=== PATIENT | male | born 1965 | race African-American/Black ===

== ENCOUNTER 2020-08-19 17:02 | Inpatient (IN) | payer MEDICAID ==
[~2020-08-19] VITALS: Ht 188 cm; Wt 68.2 kg
[2020-08-19] MEDS ORDERED: TETanus/Pertussis (Acell)/Diphther VAC/PF (Tdap-Adult) 0.5ml syringe IMVAC ONE (18:40)
[2020-08-19] MEDS ORDERED: normal saline 1000ml 1,000 ML IV ONE (19:05)
[2020-08-19] MEDS ORDERED: METF500T PO (19:07)
[2020-08-19] MEDS ORDERED: LISI40TA4 PO (19:07)
[2020-08-19] MEDS ORDERED: GLYB5TAB7 PO (19:07)
[2020-08-19 19:28] LABS: BASOPHILS # (AUTO) 0.1 X10'3 (0-0.2); BASOPHILS % (AUTO) 0.5 % (0-1); EOSINOPHILS # (AUTO) 0.1 X10'3 (0-0.9); EOSINOPHILS % (AUTO) 0.4 % (0-6); HEMATOCRIT 29.2 % (42.0-52.0); HEMOGLOBIN 9.9 g/dl (14.0-17.9); LYMPHOCYTES # (AUTO) 1.5 X10'3 (1.1-4.8); LYMPHOCYTES % (AUTO) 10.4 % (21-51); MEAN CORPUSCULAR HEMOGLOBIN 32.5 PG (27.0-31.0); MEAN CORPUSCULAR HGB CONC 33.8 g/dL (33.0-36.5); MONOCYTES # (AUTO) 1.1 X10'3 (0-0.9); MONOCYTES % (AUTO) 7.6 % (2-12); NEUTROPHILS # (AUTO) 11.5 X10'3 (1.8-7.7); NEUTROPHILS % (AUTO) 81.1 % (42-75); PLATELET COUNT 363 X10'3 (140-440); RED BLOOD COUNT 3.04 X10'6 (4.70-6.10); RED CELL DISTRIBUTION WIDTH 13.4 % (11.5-14.5); WHITE BLOOD COUNT 14.1 X10'3 (4.5-11.0)
[2020-08-19 19:37] LABS: ALANINE AMINOTRANSFERASE 16 U/L (12-78); ALBUMIN 2.8 G/DL (3.4-5.0); ALBUMIN/GLOBULIN RATIO 0.5 (1.1-1.5); ALKALINE PHOSPHATASE 90 IU/L (46-116); ANION GAP 6 (8-16); ASPARTATE AMINO TRANSFERASE 11 U/L (10-37); BILIRUBIN,TOTAL 0.5 MG/DL (0.1-1.0); BLOOD UREA NITROGEN 25 MG/DL (7-18); BUN/CREATININE RATIO 26.6 (5.4-32.0); C-REACTIVE PROTEIN 12.88 MG/DL (0.0-0.5); CALCIUM 9.4 MG/DL (8.5-10.1); CHLORIDE 94 MMOL/L (99-107); CREATININE 0.94 MG/DL (0.60-1.10); GLUCOSE 399 MG/DL (70-104); POTASSIUM 4.2 MMOL/L (3.5-5.1); SODIUM 130 MMOL/L (135-145); TOTAL CARBON DIOXIDE 30.1 MMOL/L (24-32); eGFR 83 ML/MIN
[2020-08-19] MEDS ORDERED: insulin regular, human 10 units/0.1 ml syringe SQ ONE (19:50)
[2020-08-19] MEDS ORDERED: cefepime 2g/NS 100ml ADVANTAGE 100 ML IV SCH (20:25)
[2020-08-19] MEDS ORDERED: vancomycin/NS 1 GM ADD-VANTAGE 250 ML IV ONE (20:25)
[2020-08-19] MEDS ORDERED: cefepime 2g/NS 100ml ADVANTAGE 100 ML IV ONE (20:29)
[2020-08-19] MEDS ORDERED: potassium Cl 20 mEq SR tablet PO PRN (21:00)
[2020-08-19] MEDS ORDERED: ondansetron/PF 4mg/2ml inj IV PRN (21:00)
[2020-08-19] MEDS ORDERED: morphine 2 MG/ML inj. syringe IV PRN ×3 (21:00→23:20)
[2020-08-19] MEDS ORDERED: magnesium hydroxide 30ml (MOM) UD suspension PO PRN (21:00)
[2020-08-19] MEDS ORDERED: potassium CL 10mEq/100ml bag 100 ML IV PRN ×2 (21:00)
[2020-08-19] MEDS ORDERED: acetaminophen 325mg tablet PO PRN (21:00)
[2020-08-19] MEDS ORDERED: mag hydrox/Alum hydrox/simeth 30ml oral suspension PO PRN (21:00)
[2020-08-19] MEDS ORDERED: dextrose ORAL solution 15 GM/59 ML bottle PO PRN ×2 (21:05)
[2020-08-19] MEDS ORDERED: glucagon, human recombinant 1mg kit SUBCUT PRN (21:05)
[2020-08-19] MEDS ORDERED: dextrose 50%-water 50ml dispensing syringe IV PRN ×2 (21:05)
[2020-08-19] MEDS ORDERED: MESSAGE TO PHARMACY PO ONE (21:05)
[2020-08-19] MEDS: normal saline 1000ml 1,000 ML IV SCH (21:13)
[2020-08-19 22:00] VITALS: BP 117/69
--- NOTE | 2020-08-19 22:00 | NUR ---
Received Patient report from ER nurse. Patient arrived to unit at 2150, alert oriented x4 , and in no apparent distress. Patient arrived with backpack and carolyn pack.
[2020-08-19] MEDS: insulin Lispro (HumaLOG) vial - multi-dose SQ SCH (22:58)
[2020-08-19] MEDS: insulin glargine (Lantus) pen - multi-dose SQ SCH (23:12)
[2020-08-20] MEDS: cefepime 1GM/NS ADD-VANTAGE 100 ML IV SCH ×3 (00:18→15:38)
[2020-08-20] MEDS: morphine 2 MG/ML inj. syringe IV PRN ×4 (00:18→21:07)
[2020-08-20 01:50] VITALS: BP 132/88
[2020-08-20 05:07] LABS: BASOPHILS # (AUTO) 0.1 X10'3 (0-0.2); BASOPHILS % (AUTO) 0.4 % (0-1); EOSINOPHILS # (AUTO) 0.1 X10'3 (0-0.9); HEMATOCRIT 27.3 % (42.0-52.0); HEMOGLOBIN 9.2 g/dl (14.0-17.9); LYMPHOCYTES # (AUTO) 1.3 X10'3 (1.1-4.8); LYMPHOCYTES % (AUTO) 9.3 % (21-51); MEAN CORPUSCULAR HEMOGLOBIN 32.1 PG (27.0-31.0); MEAN CORPUSCULAR HGB CONC 33.8 g/dL (33.0-36.5); MEAN CORPUSCULAR VOLUME 94.9 FL (78-98); MEAN PLATELET VOLUME 6.8 FL (7.4-10.4); MONOCYTES # (AUTO) 1.1 X10'3 (0-0.9); MONOCYTES % (AUTO) 8.4 % (2-12); NEUTROPHILS % (AUTO) 80.9 % (42-75); PLATELET COUNT 335 X10'3 (140-440); RED BLOOD COUNT 2.88 X10'6 (4.70-6.10); RED CELL DISTRIBUTION WIDTH 13.7 % (11.5-14.5); WHITE BLOOD COUNT 13.6 X10'3 (4.5-11.0)
[2020-08-20 05:13] LABS: ALANINE AMINOTRANSFERASE 15 U/L (12-78); ALBUMIN 2.5 G/DL (3.4-5.0); ALBUMIN/GLOBULIN RATIO 0.5 (1.1-1.5); ALKALINE PHOSPHATASE 82 IU/L (46-116); ANION GAP 5 (8-16); ASPARTATE AMINO TRANSFERASE 4 U/L (10-37); BILIRUBIN,TOTAL 0.5 MG/DL (0.1-1.0); BLOOD UREA NITROGEN 18 MG/DL (7-18); BUN/CREATININE RATIO 19.8 (5.4-32.0); CALCIUM 8.5 MG/DL (8.5-10.1); CHLORIDE 99 MMOL/L (99-107); CREATININE 0.91 MG/DL (0.60-1.10); GLUCOSE 359 MG/DL (70-104); POTASSIUM 3.5 MMOL/L (3.5-5.1); SODIUM 134 MMOL/L (135-145); TOTAL CARBON DIOXIDE 30.5 MMOL/L (24-32); TOTAL PROTEIN 7.3 G/DL (6.4-8.2); eGFR > 90 ML/MIN
[2020-08-20 06:30] VITALS: BP 140/92
--- NOTE | 2020-08-20 06:30 | NUR ---
Patient in room ALLA 340. I have received report from CINTIA Garnica and had the opportunity to ask questions and assume patient care.
--- NOTE | 2020-08-20 06:37 | NUR ---
Problems reprioritized. Patient report given, questions answered & plan of care reviewed with CINTIA Shafer.
[2020-08-20] MEDS: K and/or MAG REPLACEMENT MC SCH ×2 (07:03→20:00)
[2020-08-20] MEDS ORDERED: non-formulary drug (Glyburide 1 TAB) PO SCH (08:00)
[2020-08-20] MEDS ORDERED: cefepime 2g/NS 100ml ADVANTAGE 100 ML IV SCH (08:00)
[2020-08-20] MEDS ORDERED: non-formulary drug (Lisinopril* 1 TAB) PO SCH (08:00)
[2020-08-20] MEDS ORDERED: metFORMIN 500mg tablet PO SCH (08:00)
[2020-08-20] MEDS: lisinopril 10 MG tablet PO SCH (08:51)
[2020-08-20] MEDS: normal saline 1000ml 1,000 ML IV SCH ×2 (08:52→17:00)
[2020-08-20] MEDS: heparin, porcine 5000 units/ml vial SQ SCH ×2 (08:52→20:37)
[2020-08-20] MEDS: insulin Lispro (HumaLOG) vial - multi-dose SQ SCH ×4 (09:10→21:22)
[2020-08-20] MEDS ORDERED: pneumococcal 23-VAL P-sac vacc 25 mcg/0.5ml vial IMVAC ONE (10:00)
[2020-08-20] MEDS: vancomycin/NS 1 GM ADD-VANTAGE 250 ML IV SCH ×2 (10:10→20:38)
[2020-08-20 11:00] VITALS: BP 121/78
--- NOTE | 2020-08-20 15:13 | NUR ---
DM/wound consult: Pt admit with left foot DM ulcer. Wound care has been consulted for further assessment, pending at this time. Pt with A1c 10.7% seen at bedside for written and verbal protein and DM educations. Pt verbalized understanding of both educations. Pt states he hasn't seen an MD since they retired however would not clarify as to when he last saw them. Pt states he checks his BG levels one time a week however is unsure of what numbers he generally sees. Pt reports taking his DM medications per rx and states that he tries to limit his sugar intake. RD encouraged pt to f/u with an MD regarding diabetes management. Pt endorses a good appetite which is evident with documented 100% PO intake on CHO controlled diet, agrees to double protein TID, d/w dietary. Pt denies food allergies, difficulty chewing/swallowing, or constipation/diarrhea. Pt provided with BETTIE contact information. Will continue to follow. Addendum: 08/20/20 at [address] Amended: Links added.
--- NOTE | 2020-08-20 16:55 | NUR ---
Report given to O/N, Giulia RN
--- NOTE | 2020-08-20 17:01 | NUR ---
Patient in room ALLA 340. I have received report from Soni CHAMBERLAIN and had the opportunity to ask questions and assume patient care.
--- NOTE | 2020-08-20 17:50 | NUR ---
Patient arrived to the unit.
--- NOTE | 2020-08-20 18:14 | NUR ---
Problems reprioritized. Patient report given, questions answered & plan of care reviewed with Arlen CHAMBERLAIN.
--- NOTE | 2020-08-20 18:15 | NUR ---
Problems reprioritized. Patient report given, questions answered & plan of care reviewed with Arlen CHAMBERLAIN.
--- NOTE | 2020-08-20 18:30 | NUR ---
Patient in room ORTHO 4007. I have received report from Giulia RN AND CINTIA Holbrook student and had the opportunity to ask questions and assume patient care.
[2020-08-20] MEDS: lactobacillus rhamnosus 10,000 MMU CELLS/CAPSULE PO SCH (20:36)
[2020-08-20] MEDS: insulin glargine (Lantus) pen - multi-dose SQ SCH (21:20)
[2020-08-20 22:19] VITALS: BP 129/76
[2020-08-21] MEDS: cefepime 1GM/NS ADD-VANTAGE 100 ML IV SCH ×4 (00:34→23:55)
[2020-08-21] MEDS: normal saline 1000ml 1,000 ML IV SCH ×2 (00:37→15:10)
[2020-08-21] MEDS: morphine 2 MG/ML inj. syringe IV PRN ×2 (00:46→11:26)
[2020-08-21 05:52] LABS: BASOPHILS # (AUTO) 0.1 X10'3 (0-0.2); BASOPHILS % (AUTO) 0.4 % (0-1); EOSINOPHILS # (AUTO) 0.1 X10'3 (0-0.9); EOSINOPHILS % (AUTO) 0.6 % (0-6); HEMATOCRIT 29.4 % (42.0-52.0); HEMOGLOBIN 9.8 g/dl (14.0-17.9); LYMPHOCYTES # (AUTO) 1.5 X10'3 (1.1-4.8); LYMPHOCYTES % (AUTO) 11.8 % (21-51); MEAN CORPUSCULAR HEMOGLOBIN 31.9 PG (27.0-31.0); MEAN CORPUSCULAR HGB CONC 33.5 g/dL (33.0-36.5); MEAN CORPUSCULAR VOLUME 95.4 FL (78-98); MEAN PLATELET VOLUME 6.8 FL (7.4-10.4); MONOCYTES % (AUTO) 8.1 % (2-12); NEUTROPHILS # (AUTO) 9.8 X10'3 (1.8-7.7); NEUTROPHILS % (AUTO) 79.1 % (42-75); PLATELET COUNT 389 X10'3 (140-440); RED BLOOD COUNT 3.08 X10'6 (4.70-6.10); RED CELL DISTRIBUTION WIDTH 13.7 % (11.5-14.5); WHITE BLOOD COUNT 12.4 X10'3 (4.5-11.0)
[2020-08-21 06:00] VITALS: BP 122/70
[2020-08-21 06:22] LABS: ALANINE AMINOTRANSFERASE 12 U/L (12-78); ALBUMIN 2.4 G/DL (3.4-5.0); ALBUMIN/GLOBULIN RATIO 0.5 (1.1-1.5); ALKALINE PHOSPHATASE 74 IU/L (46-116); ANION GAP 5 (8-16); ASPARTATE AMINO TRANSFERASE 10 U/L (10-37); BILIRUBIN,TOTAL 0.8 MG/DL (0.1-1.0); BLOOD UREA NITROGEN 8 MG/DL (7-18); CALCIUM 8.8 MG/DL (8.5-10.1); CHLORIDE 100 MMOL/L (99-107); CREATININE 0.73 MG/DL (0.60-1.10); GLUCOSE 75 MG/DL (70-104); SODIUM 135 MMOL/L (135-145); TOTAL CARBON DIOXIDE 30.4 MMOL/L (24-32); TOTAL PROTEIN 7.2 G/DL (6.4-8.2); eGFR > 90 ML/MIN
--- NOTE | 2020-08-21 06:35 | NUR ---
Problems reprioritized. Patient report given, questions answered & plan of care reviewed with CINTIA Monroe.
[2020-08-21 06:40] LABS: POTASSIUM 2.9 MMOL/L (3.5-5.1)
[2020-08-21] MEDS: K and/or MAG REPLACEMENT MC SCH ×2 (08:00→20:00)
[2020-08-21] MEDS: lisinopril 10 MG tablet PO SCH (08:12)
[2020-08-21] MEDS: lactobacillus rhamnosus 10,000 MMU CELLS/CAPSULE PO SCH ×2 (08:12→20:00)
[2020-08-21] MEDS: heparin, porcine 5000 units/ml vial SQ SCH ×2 (08:19→20:00)
[2020-08-21] MEDS: potassium Cl 20 mEq SR tablet PO PRN ×3 (08:23→16:52)
[2020-08-21] MEDS ORDERED: VANCOMYCIN LEVEL IV ONE (08:30)
[2020-08-21] MEDS: vancomycin/NS 1 GM ADD-VANTAGE 250 ML IV SCH (09:31)
[2020-08-21] MEDS: insulin Lispro (HumaLOG) vial - multi-dose SQ SCH ×2 (09:34→13:42)
[2020-08-21 10:00] VITALS: BP 132/78
[2020-08-21] MEDS ORDERED: lactobacillus rhamnosus 10,000 MMU CELLS/CAPSULE CORPAK SCH (11:53)
[2020-08-21] MEDS ORDERED: acetaminophen 325mg tablet CORPAK PRN (11:53)
[2020-08-21] MEDS ORDERED: lisinopril 10 MG tablet CORPAK SCH (11:53)
[2020-08-21] MEDS ORDERED: dextrose ORAL solution 15 GM/59 ML bottle CORPAK PRN ×2 (11:53)
[2020-08-21] MEDS ORDERED: acetaminophen 325mg tablet PO PRN (11:54)
[2020-08-21] MEDS: HYDROmorphone 1 mg/ml syringe IV PRN ×2 (15:14→21:12)
[2020-08-21] MEDS: dextrose ORAL solution 15 GM/59 ML bottle PO PRN ×2 (16:55→17:18)
[2020-08-21 18:00] VITALS: BP 149/86
--- NOTE | 2020-08-21 18:33 | NUR ---
Problems reprioritized. Patient report given, questions answered & plan of care reviewed with CINTIA Lai.
--- NOTE | 2020-08-21 18:37 | NUR ---
Patient in room ORTHO 4007. I have received report from Mabel CHAMBERLAIN and had the opportunity to ask questions and assume patient care.
[2020-08-21] MEDS: insulin glargine (Lantus) pen - multi-dose SQ SCH (21:27)
[2020-08-21 22:00] VITALS: BP 118/70
[2020-08-22] VITALS (17 sets, daily range): BP systolic 84–158; BP diastolic 56–101
[2020-08-22] MEDS: normal saline 1000ml 1,000 ML IV SCH ×2 (01:22→05:27)
[2020-08-22] MEDS: HYDROmorphone 1 mg/ml syringe IV PRN (03:40)
[2020-08-22 05:31] LABS: BASOPHILS % (AUTO) 0.3 % (0-1); EOSINOPHILS # (AUTO) 0.1 X10'3 (0-0.9); EOSINOPHILS % (AUTO) 0.8 % (0-6); HEMATOCRIT 24.4 % (42.0-52.0); HEMOGLOBIN 8.1 g/dl (14.0-17.9); LYMPHOCYTES # (AUTO) 1.5 X10'3 (1.1-4.8); LYMPHOCYTES % (AUTO) 11.9 % (21-51); MEAN CORPUSCULAR HEMOGLOBIN 31.6 PG (27.0-31.0); MEAN CORPUSCULAR HGB CONC 33.4 g/dL (33.0-36.5); MEAN CORPUSCULAR VOLUME 94.6 FL (78-98); MEAN PLATELET VOLUME 6.8 FL (7.4-10.4); MONOCYTES # (AUTO) 1.2 X10'3 (0-0.9); MONOCYTES % (AUTO) 9.1 % (2-12); NEUTROPHILS % (AUTO) 77.9 % (42-75); PLATELET COUNT 378 X10'3 (140-440); RED BLOOD COUNT 2.58 X10'6 (4.70-6.10); RED CELL DISTRIBUTION WIDTH 13.8 % (11.5-14.5); WHITE BLOOD COUNT 12.8 X10'3 (4.5-11.0)
[2020-08-22 05:43] LABS: ALANINE AMINOTRANSFERASE 12 U/L (12-78); ALBUMIN/GLOBULIN RATIO 0.5 (1.1-1.5); ALKALINE PHOSPHATASE 67 IU/L (46-116); ANION GAP 4 (8-16); ASPARTATE AMINO TRANSFERASE 10 U/L (10-37); BLOOD UREA NITROGEN 8 MG/DL (7-18); BUN/CREATININE RATIO 12.1 (5.4-32.0); CALCIUM 8.1 MG/DL (8.5-10.1); CHLORIDE 98 MMOL/L (99-107); CREATININE 0.66 MG/DL (0.60-1.10); GLUCOSE 151 MG/DL (70-104); POTASSIUM 3.7 MMOL/L (3.5-5.1); SODIUM 132 MMOL/L (135-145); TOTAL CARBON DIOXIDE 30.4 MMOL/L (24-32); TOTAL PROTEIN 6.3 G/DL (6.4-8.2); eGFR > 90 ML/MIN
--- NOTE | 2020-08-22 06:14 | NUR ---
Problems reprioritized. Patient report given, questions answered & plan of care reviewed with Martha CHAMBERLAIN. Patient stable at transfer of care. All current needs met
--- NOTE | 2020-08-22 06:34 | NUR ---
Received report from Joelle CHAMBERLAIN
[2020-08-22] MEDS: heparin, porcine 5000 units/ml vial SQ SCH ×2 (07:48→20:55)
[2020-08-22] MEDS: cefepime 1GM/NS ADD-VANTAGE 100 ML IV SCH ×3 (07:49→23:59)
[2020-08-22] MEDS: K and/or MAG REPLACEMENT MC SCH ×2 (08:00→19:10)
[2020-08-22] MEDS: lisinopril 10 MG tablet PO SCH (08:00)
[2020-08-22] MEDS: lactobacillus rhamnosus 10,000 MMU CELLS/CAPSULE PO SCH ×2 (08:54→20:54)
[2020-08-22] MEDS ORDERED: ringers solution, lacted 1,000 ML IV SCH (10:47)
[2020-08-22] MEDS ORDERED: morphine 2 MG/ML inj. syringe IV PRN (10:50)
[2020-08-22] MEDS ORDERED: ondansetron/PF 4mg/2ml inj IV PRN (10:50)
[2020-08-22] MEDS ORDERED: morphine 4 MG/ML inj SYRINge IV PRN (10:50)
[2020-08-22] MEDS ORDERED: meperidine/PF 25mg/ml syringe IV PRN ×3 (10:50)
[2020-08-22] MEDS ORDERED: proCHLORperazine 10 MG/2 ml inj IV PRN (10:50)
[2020-08-22] MEDS ORDERED: fentaNYL/PF 50MCG/1 ML 2ML syringe ONE (11:26)
[2020-08-22] MEDS ORDERED: propofol inj 20 ML IV ONE (11:26)
[2020-08-22] MEDS ORDERED: midazolam 2 mg/2 ml injection ONE (11:26)
[2020-08-22] MEDS ORDERED: sevoflurane 250ml liquid IH ONE (11:41)
--- NOTE | 2020-08-22 13:35 | NUR ---
PATIENT A&OX4, DENIES PAIN, V/S WNL, NEUROVASCULAR CHECKS INTACT, 22G PIV LUE, SCD ON, DRESSING TO LEFT ANKLE CDI ELEVATED WITH ICEBAG APPLIED. PATIENT TAKEN TO 4007 WITH ALL BELONGINGS AND HOOKED UP TO MONITORS IN ROOM AND REPORT GIVEN TO PENCIL SORTER WHO HAS TAKEN OVER PATIENT CARE.
--- NOTE | 2020-08-22 13:35 | NUR ---
Received from OR via BED, accompanied by Anesthesiologist DR ESTRADA and report given by Anesthesiolgist. PATIENT A&OX4, DENIES PAIN, V/S WNL, NEUROVASCULAR CHECKS INTACT, 22G PIV LUE, SCD ON, DRESSING TO LEFT ANKLE CDI ELEVATED WITH ICEBAG APPLIED.
[2020-08-22] MEDS: HYDROmorphone inj. 0.5 MG/0.5 ML DISP.SYRIN IV PRN (16:56)
[2020-08-22] MEDS: insulin Lispro (HumaLOG) vial - multi-dose SQ SCH (18:55)
[2020-08-22] MEDS: insulin glargine (Lantus) pen - multi-dose SQ SCH (21:01)
[2020-08-23] MEDS: HYDROmorphone 1 mg/ml syringe IV PRN ×2 (00:01→08:26)
[2020-08-23 02:00] VITALS: BP 114/72
[2020-08-23 06:00] VITALS: BP 115/67
--- NOTE | 2020-08-23 07:43 | NUR ---
Patient in room ORTHO 4007. I have received report from CINTIA CARMONA and had the opportunity to ask questions and assume patient care.
[2020-08-23] MEDS ORDERED: cefepime inj. 1 GM in normal saline 100ml IV soln 100 ML IV SCH (08:00)
[2020-08-23] MEDS: K and/or MAG REPLACEMENT MC SCH ×2 (08:00→21:51)
[2020-08-23] MEDS: lactobacillus rhamnosus 10,000 MMU CELLS/CAPSULE PO SCH ×2 (08:00→21:38)
[2020-08-23] MEDS: lisinopril 10 MG tablet PO SCH (08:00)
[2020-08-23] MEDS: heparin, porcine 5000 units/ml vial SQ SCH ×2 (08:17→21:39)
[2020-08-23] MEDS: normal saline 1000ml 1,000 ML IV SCH ×3 (08:24→23:08)
[2020-08-23] MEDS ORDERED: VANCOMYCIN LEVEL IV ONE (08:30)
[2020-08-23] MEDS: insulin Lispro (HumaLOG) vial - multi-dose SQ SCH ×2 (09:18→19:01)
[2020-08-23 09:47] LABS: BASOPHILS % (AUTO) 0.4 % (0-1); EOSINOPHILS # (AUTO) 0.1 X10'3 (0-0.9); EOSINOPHILS % (AUTO) 0.5 % (0-6); HEMATOCRIT 22.7 % (42.0-52.0); HEMOGLOBIN 7.5 g/dl (14.0-17.9); LYMPHOCYTES % (AUTO) 8.6 % (21-51); MEAN CORPUSCULAR HEMOGLOBIN 31.5 PG (27.0-31.0); MEAN CORPUSCULAR HGB CONC 33.1 g/dL (33.0-36.5); MEAN CORPUSCULAR VOLUME 95.2 FL (78-98); MEAN PLATELET VOLUME 6.5 FL (7.4-10.4); MONOCYTES # (AUTO) 0.9 X10'3 (0-0.9); MONOCYTES % (AUTO) 7.9 % (2-12); NEUTROPHILS # (AUTO) 9.5 X10'3 (1.8-7.7); NEUTROPHILS % (AUTO) 82.6 % (42-75); PLATELET COUNT 416 X10'3 (140-440); RED BLOOD COUNT 2.39 X10'6 (4.70-6.10); RED CELL DISTRIBUTION WIDTH 14.6 % (11.5-14.5); WHITE BLOOD COUNT 11.5 X10'3 (4.5-11.0)
[2020-08-23 09:59] LABS: ALANINE AMINOTRANSFERASE 10 U/L (12-78); ALBUMIN 1.9 G/DL (3.4-5.0); ALBUMIN/GLOBULIN RATIO 0.4 (1.1-1.5); ALKALINE PHOSPHATASE 72 IU/L (46-116); ANION GAP 1 (8-16); ASPARTATE AMINO TRANSFERASE 15 U/L (10-37); BLOOD UREA NITROGEN 7 MG/DL (7-18); BUN/CREATININE RATIO 9.3 (5.4-32.0); CALCIUM 8.4 MG/DL (8.5-10.1); CHLORIDE 101 MMOL/L (99-107); CREATININE 0.75 MG/DL (0.60-1.10); GLUCOSE 197 MG/DL (70-104); POTASSIUM 3.5 MMOL/L (3.5-5.1); SODIUM 134 MMOL/L (135-145); TOTAL CARBON DIOXIDE 31.9 MMOL/L (24-32); TOTAL PROTEIN 6.4 G/DL (6.4-8.2); eGFR > 90 ML/MIN
[2020-08-23 10:00] VITALS: BP 100/60
--- NOTE | 2020-08-23 12:54 | NUR ---
Initial: Pt admit DX L foot cellulitis, L plantar foot DM ulcer, anemia, and hx uncontrolled DM checking Glu once per week reported during RD visit this admit. S/p I&D L foot PO 90-100% avg carb controlled meals likely meeting protein/kcal needs though still pending scaled wt this admit. LBM 08/20. No nutrition concerns at this time. Will continue to monitor. Rec: 1. continue carb controlled diet 2. routine bowel care 3. monitor for additional protein needs pending scaled wt this admit Addendum: 08/23/20 at [address] Amended: Links added.
[2020-08-23] MEDS ORDERED: vancomycin/NS 1 GM ADD-VANTAGE 250 ML IV SCH (16:00)
[2020-08-23] MEDS ORDERED: VANCOmycin 1250MG/NS 250ml Bag 250 ML IV SCH (16:00)
[2020-08-23 18:00] VITALS: BP 125/73
--- NOTE | 2020-08-23 18:06 | NUR ---
Problems reprioritized. Patient report given, questions answered & plan of care reviewed with CINTIA CARMONA.
[2020-08-23] MEDS: HYDROcodone/acetaminophen 10/325mg tab PO PRN (21:38)
[2020-08-23] MEDS: insulin glargine (Lantus) pen - multi-dose SQ SCH (21:46)
[2020-08-23 22:00] VITALS: BP 97/59
[2020-08-24] VITALS (8 sets, daily range): BP systolic 90–133; BP diastolic 58–91
--- NOTE | 2020-08-24 04:24 | NUR ---
Informed by fellow RN that patient's dressing for left foot had been taken off by the patient and placed on his bedside table. When patient was asked why he had taken off his dressing he stated "it was oozing." Educated patient that if he had concerns about his dressing or found it to be oozing to press his call button and have nursing staff assist him, for when he takes the dressing off he is at greater risk for another infection to the wound. New dressing applied to the left foot, Xeroform with gauze covered by Kerlix and kellee bandage. Patient has verbalized understanding at this time of education provided regarding his dressing. Will continue to monitor, call light within reach of patient.
--- NOTE | 2020-08-24 06:29 | NUR ---
Report given to Clarisa CHAMBERLAIN.
[2020-08-24 06:43] LABS: BASOPHILS # (AUTO) 0.1 X10'3 (0-0.2); BASOPHILS % (AUTO) 0.9 % (0-1); EOSINOPHILS # (AUTO) 0.2 X10'3 (0-0.9); EOSINOPHILS % (AUTO) 1.8 % (0-6); HEMOGLOBIN 7.1 g/dl (14.0-17.9); LYMPHOCYTES # (AUTO) 1.6 X10'3 (1.1-4.8); LYMPHOCYTES % (AUTO) 17.9 % (21-51); MEAN CORPUSCULAR HGB CONC 33.7 g/dL (33.0-36.5); MEAN CORPUSCULAR VOLUME 94.7 FL (78-98); MEAN PLATELET VOLUME 6.7 FL (7.4-10.4); MONOCYTES # (AUTO) 0.8 X10'3 (0-0.9); MONOCYTES % (AUTO) 9.2 % (2-12); NEUTROPHILS # (AUTO) 6.2 X10'3 (1.8-7.7); NEUTROPHILS % (AUTO) 70.2 % (42-75); PLATELET COUNT 439 X10'3 (140-440); RED BLOOD COUNT 2.21 X10'6 (4.70-6.10); RED CELL DISTRIBUTION WIDTH 14.8 % (11.5-14.5); WHITE BLOOD COUNT 8.8 X10'3 (4.5-11.0)
[2020-08-24 06:47] LABS: HEMATOCRIT 20.9 % (42.0-52.0)
[2020-08-24 06:59] LABS: ALANINE AMINOTRANSFERASE 15 U/L (12-78); ALBUMIN 1.9 G/DL (3.4-5.0); ALBUMIN/GLOBULIN RATIO 0.4 (1.1-1.5); ALKALINE PHOSPHATASE 71 IU/L (46-116); ANION GAP 4 (8-16); ASPARTATE AMINO TRANSFERASE 12 U/L (10-37); BILIRUBIN,TOTAL 0.5 MG/DL (0.1-1.0); BLOOD UREA NITROGEN 8 MG/DL (7-18); BUN/CREATININE RATIO 12.7 (5.4-32.0); CALCIUM 8.1 MG/DL (8.5-10.1); CHLORIDE 104 MMOL/L (99-107); CREATININE 0.63 MG/DL (0.60-1.10); GLUCOSE 141 MG/DL (70-104); POTASSIUM 3.5 MMOL/L (3.5-5.1); SODIUM 138 MMOL/L (135-145); TOTAL CARBON DIOXIDE 29.7 MMOL/L (24-32); TOTAL PROTEIN 6.4 G/DL (6.4-8.2); eGFR > 90 ML/MIN
[2020-08-24] MEDS: K and/or MAG REPLACEMENT MC SCH ×2 (08:00→20:00)
[2020-08-24] MEDS: HYDROcodone/acetaminophen 10/325mg tab PO PRN ×2 (08:31→15:06)
[2020-08-24] MEDS: lactobacillus rhamnosus 10,000 MMU CELLS/CAPSULE PO SCH ×2 (08:31→20:38)
[2020-08-24] MEDS: lisinopril 10 MG tablet PO SCH (08:34)
[2020-08-24] MEDS: insulin Lispro (HumaLOG) vial - multi-dose SQ SCH ×3 (08:39→19:15)
[2020-08-24] MEDS: heparin, porcine 5000 units/ml vial SQ SCH ×2 (08:40→20:38)
[2020-08-24] MEDS: levoFLOXACIN-Levaquin 500mg/D5 100 ML IV SCH (08:45)
--- NOTE | 2020-08-24 11:41 | NUR ---
Student documentation: I have reviewed all interventions, assessments performed and documented by Dann Marion. Student Medication Administration: For this medication-pass time frame, all medication were reviewed, dispensed, administered and documented per hospital policy by Dann Marion.
--- NOTE | 2020-08-24 14:57 | NUR ---
DIABETIC FOOT CARE EDUCATION PROVIDED BY WOUND CARE * Wash your feet daily with lukewarm water and soap. * Dry your feet well, especially between the toes. * Keep the skin moisturized with lotion, but do not apply it between the toes. * Check your feet for blisters, cuts or sores. * Use an emery board to shape your toenails even with the ends of your toes. * Change daily into clean, soft socks or stockings, not too big or too small. * Keep your feet warm and dry. * Preferably wear special padded socks and shoes that fit well. * Never walk barefoot indoors or outdoors. * Examine your shoes everyday for cracks, ryan, nails or anything that could hurt your feet. * Tell your doctor if you find any of these problems or have any concerns after examining your feet. WOUND INFECTION EDUCATION PROVIDED BY WOUND CARE 1. Patient instructed to call their primary doctor, or go the ED immediately if any of the following symptoms occur: * Increased pain in wound * Increase in drainage from the wound * Redness in the skin surrounding the wound * Warmth in the skin surrounding the wound * Bleeding from the wound * Temperature of 101 or greater 2. If any of these occur while in the hospital tell a nurse immediately. Addendum: 08/24/20 at 1457 by Merlin Bermudez RN Amended: Links added.
[2020-08-24] MEDS: normal saline 1000ml 1,000 ML IV SCH (15:04)
[2020-08-24] MEDS ORDERED: VANCOMYCIN LEVEL IV ONE (15:30)
--- NOTE | 2020-08-24 18:38 | NUR ---
Problems reprioritized. Patient report given, questions answered & plan of care reviewed with Sully CHAMBERLAIN.
[2020-08-24 18:42] LABS: BASOPHILS # (AUTO) 0.1 X10'3 (0-0.2); EOSINOPHILS # (AUTO) 0.1 X10'3 (0-0.9); EOSINOPHILS % (AUTO) 1.6 % (0-6); HEMATOCRIT 23.1 % (42.0-52.0); HEMOGLOBIN 7.8 g/dl (14.0-17.9); LYMPHOCYTES # (AUTO) 1.7 X10'3 (1.1-4.8); LYMPHOCYTES % (AUTO) 22.9 % (21-51); MEAN CORPUSCULAR HEMOGLOBIN 32.1 PG (27.0-31.0); MEAN CORPUSCULAR HGB CONC 33.7 g/dL (33.0-36.5); MEAN CORPUSCULAR VOLUME 95.3 FL (78-98); MEAN PLATELET VOLUME 6.8 FL (7.4-10.4); MONOCYTES # (AUTO) 0.9 X10'3 (0-0.9); MONOCYTES % (AUTO) 12.1 % (2-12); NEUTROPHILS # (AUTO) 4.6 X10'3 (1.8-7.7); NEUTROPHILS % (AUTO) 62.4 % (42-75); PLATELET COUNT 457 X10'3 (140-440); RED BLOOD COUNT 2.42 X10'6 (4.70-6.10); RED CELL DISTRIBUTION WIDTH 14.8 % (11.5-14.5); WHITE BLOOD COUNT 7.4 X10'3 (4.5-11.0)
[2020-08-24] MEDS: insulin glargine (Lantus) pen - multi-dose SQ SCH (21:49)
[2020-08-25] MEDS: normal saline 1000ml 1,000 ML IV SCH ×2 (02:24→15:02)
[2020-08-25] MEDS: HYDROmorphone 1 mg/ml syringe IV PRN ×4 (04:26→21:30)
[2020-08-25 06:00] VITALS: BP 117/69
--- NOTE | 2020-08-25 06:34 | NUR ---
Patient in room ORTHO 4007. I have received report from CINTIA Rizzo and had the opportunity to ask questions and assume patient care.
[2020-08-25] MEDS: K and/or MAG REPLACEMENT MC SCH ×2 (07:35→20:00)
[2020-08-25] MEDS: levoFLOXACIN-Levaquin 500mg/D5 100 ML IV SCH (07:43)
[2020-08-25] MEDS: lactobacillus rhamnosus 10,000 MMU CELLS/CAPSULE PO SCH ×2 (07:44→21:30)
[2020-08-25] MEDS: lisinopril 10 MG tablet PO SCH (07:45)
[2020-08-25] MEDS: heparin, porcine 5000 units/ml vial SQ SCH ×2 (07:45→21:30)
[2020-08-25] MEDS: insulin Lispro (HumaLOG) vial - multi-dose SQ SCH ×3 (08:42→19:19)
[2020-08-25 09:35] VITALS: BP 115/76
[2020-08-25] MEDS: HYDROcodone/acetaminophen 10/325mg tab PO PRN ×2 (11:53→21:56)
--- NOTE | 2020-08-25 12:08 | NUR ---
Student documentation: I have reviewed all interventions, assessments performed and documented by [place] Enamorado Pukalani. Student Medication Administration: For this medication-pass time frame, all medication were reviewed, dispensed, administered and documented per hospital policy by [place] praveen [facility].
--- NOTE | 2020-08-25 15:33 | NUR ---
DM Consult: Addressed this admit; see prior RD note. Addendum: 08/25/20 at [address] Amended: Links added.
--- NOTE | 2020-08-25 16:01 | NUR ---
Student documentation: I have reviewed assessment performed and documented by Tarik Metzger [facility].
[2020-08-25] MEDS: dextrose ORAL solution 15 GM/59 ML bottle PO PRN ×2 (17:00→17:27)
[2020-08-25 17:18] LABS: BASOPHILS # (AUTO) 0.1 X10'3 (0-0.2); BASOPHILS % (AUTO) 1.2 % (0-1); EOSINOPHILS # (AUTO) 0.1 X10'3 (0-0.9); EOSINOPHILS % (AUTO) 1.7 % (0-6); HEMATOCRIT 23.2 % (42.0-52.0); HEMOGLOBIN 7.8 g/dl (14.0-17.9); LYMPHOCYTES # (AUTO) 1.9 X10'3 (1.1-4.8); LYMPHOCYTES % (AUTO) 27.8 % (21-51); MEAN CORPUSCULAR HEMOGLOBIN 32.4 PG (27.0-31.0); MEAN CORPUSCULAR HGB CONC 33.5 g/dL (33.0-36.5); MEAN CORPUSCULAR VOLUME 96.7 FL (78-98); MEAN PLATELET VOLUME 6.7 FL (7.4-10.4); MONOCYTES # (AUTO) 0.8 X10'3 (0-0.9); MONOCYTES % (AUTO) 11.7 % (2-12); NEUTROPHILS % (AUTO) 57.6 % (42-75); PLATELET COUNT 510 X10'3 (140-440); RED CELL DISTRIBUTION WIDTH 15.1 % (11.5-14.5); WHITE BLOOD COUNT 6.9 X10'3 (4.5-11.0)
[2020-08-25 17:26] LABS: ALANINE AMINOTRANSFERASE 16 U/L (12-78); ALBUMIN 2.1 G/DL (3.4-5.0); ALBUMIN/GLOBULIN RATIO 0.4 (1.1-1.5); ALKALINE PHOSPHATASE 69 IU/L (46-116); ANION GAP 3 (8-16); ASPARTATE AMINO TRANSFERASE 19 U/L (10-37); BILIRUBIN,TOTAL 0.3 MG/DL (0.1-1.0); BLOOD UREA NITROGEN 7 MG/DL (7-18); BUN/CREATININE RATIO 9.1 (5.4-32.0); CALCIUM 8.8 MG/DL (8.5-10.1); CHLORIDE 102 MMOL/L (99-107); CREATININE 0.77 MG/DL (0.60-1.10); GLUCOSE 61 MG/DL (70-104); POTASSIUM 3.8 MMOL/L (3.5-5.1); SODIUM 135 MMOL/L (135-145); TOTAL CARBON DIOXIDE 30.2 MMOL/L (24-32); TOTAL PROTEIN 6.8 G/DL (6.4-8.2); eGFR > 90 ML/MIN
[2020-08-25 18:00] VITALS: BP 104/65
--- NOTE | 2020-08-25 18:23 | NUR ---
Problems reprioritized. Patient report given, questions answered & plan of care reviewed with Tram Blackmon RN.
--- NOTE | 2020-08-25 18:36 | NUR ---
Patient in room ORTHO 4007. I have received report from CINTIA Mabry and had the opportunity to ask questions and assume patient care. Addendum: 08/25/20 at 1837 by Irma Taylor RN Amended: Links added.
[2020-08-25] MEDS: insulin glargine (Lantus) pen - multi-dose SQ SCH (21:43)
[2020-08-25 22:00] VITALS: BP 110/78
[2020-08-26] VITALS (21 sets, daily range): BP systolic 84–145; BP diastolic 53–88
[2020-08-26] MEDS: normal saline 1000ml 1,000 ML IV SCH ×2 (02:48→15:14)
[2020-08-26] MEDS: HYDROmorphone inj. 0.5 MG/0.5 ML DISP.SYRIN IV PRN (05:10)
--- NOTE | 2020-08-26 05:48 | NUR ---
lt foot wound noted soiled ,dressing was changed at this time Addendum: 08/26/20 at 0549 by Irma Taylor RN patient premedicated prior to dressing changed and PS7/10
--- NOTE | 2020-08-26 06:23 | NUR ---
Problems reprioritized. Patient report given, questions answered & plan of care reviewed with CINTIA Rogel.
[2020-08-26 06:39] LABS: ALANINE AMINOTRANSFERASE 24 U/L (12-78); ALBUMIN 1.8 G/DL (3.4-5.0); ALBUMIN/GLOBULIN RATIO 0.4 (1.1-1.5); ALKALINE PHOSPHATASE 64 IU/L (46-116); ANION GAP 3 (8-16); ASPARTATE AMINO TRANSFERASE 27 U/L (10-37); BILIRUBIN,TOTAL 0.2 MG/DL (0.1-1.0); BLOOD UREA NITROGEN 9 MG/DL (7-18); CALCIUM 8.4 MG/DL (8.5-10.1); CHLORIDE 105 MMOL/L (99-107); CREATININE 0.82 MG/DL (0.60-1.10); GLUCOSE 127 MG/DL (70-104); POTASSIUM 3.7 MMOL/L (3.5-5.1); SODIUM 138 MMOL/L (135-145); TOTAL CARBON DIOXIDE 30.4 MMOL/L (24-32); eGFR > 90 ML/MIN
[2020-08-26 06:40] LABS: BASOPHILS % (AUTO) 0.8 % (0-1); EOSINOPHILS # (AUTO) 0.1 X10'3 (0-0.9); EOSINOPHILS % (AUTO) 1.9 % (0-6); HEMOGLOBIN 7.4 g/dl (14.0-17.9); LYMPHOCYTES # (AUTO) 1.6 X10'3 (1.1-4.8); LYMPHOCYTES % (AUTO) 25.4 % (21-51); MEAN CORPUSCULAR HEMOGLOBIN 32.7 PG (27.0-31.0); MEAN CORPUSCULAR HGB CONC 34.1 g/dL (33.0-36.5); MEAN CORPUSCULAR VOLUME 95.9 FL (78-98); MEAN PLATELET VOLUME 6.5 FL (7.4-10.4); MONOCYTES # (AUTO) 0.6 X10'3 (0-0.9); MONOCYTES % (AUTO) 9.9 % (2-12); NEUTROPHILS # (AUTO) 3.9 X10'3 (1.8-7.7); PLATELET COUNT 501 X10'3 (140-440); RED BLOOD COUNT 2.27 X10'6 (4.70-6.10); RED CELL DISTRIBUTION WIDTH 15.3 % (11.5-14.5); WHITE BLOOD COUNT 6.4 X10'3 (4.5-11.0)
[2020-08-26 06:55] LABS: HEMATOCRIT 21.8 % (42.0-52.0)
--- NOTE | 2020-08-26 06:56 | NUR ---
Patient in room ORTHO 4007. I have received report from Tram CHAMBERLAIN and had the opportunity to ask questions and assume patient care.
[2020-08-26] MEDS: K and/or MAG REPLACEMENT MC SCH ×2 (08:00→20:00)
[2020-08-26] MEDS: lactobacillus rhamnosus 10,000 MMU CELLS/CAPSULE PO SCH ×2 (08:29→19:34)
[2020-08-26] MEDS: levoFLOXACIN-Levaquin 500mg/D5 100 ML IV SCH (08:29)
[2020-08-26] MEDS: lisinopril 10 MG tablet PO SCH (08:32)
[2020-08-26] MEDS: heparin, porcine 5000 units/ml vial SQ SCH ×2 (08:33→19:35)
[2020-08-26] MEDS: HYDROcodone/acetaminophen 10/325mg tab PO PRN ×2 (08:39→15:17)
[2020-08-26] MEDS: insulin Lispro (HumaLOG) vial - multi-dose SQ SCH ×2 (08:43→19:15)
[2020-08-26 09:03] LABS: TOTAL CELLS COUNTED 100
[2020-08-26 09:05] LABS: HYPOCHROMASIA 1+
[2020-08-26 09:07] LABS: PLATELET ESTIMATE INCREASED; POLYCHROMASIA 1+
[2020-08-26] MEDS ORDERED: famotidine/PF 10 mg/ml inj IV ONE (11:15)
--- NOTE | 2020-08-26 12:52 | NUR ---
patient report given to Clovis in recovery
[2020-08-26] MEDS ORDERED: BUPIVAcaine/PF 2.5 mg/ml (0.25%) 30ml vial ONE (13:00)
[2020-08-26] MEDS: ringers solution, lacted 1,000 ML IV SCH (13:21)
[2020-08-26] MEDS ORDERED: sevoflurane 250ml liquid IH ONE (13:21)
[2020-08-26] MEDS ORDERED: fentaNYL/PF 50MCG/1 ML 2ML syringe ONE (13:24)
[2020-08-26] MEDS ORDERED: midazolam 2 mg/2 ml injection ONE (13:24)
[2020-08-26] MEDS ORDERED: morphine 4 MG/ML inj SYRINge IV PRN (13:25)
[2020-08-26] MEDS ORDERED: proCHLORperazine 10 MG/2 ml inj IV PRN (13:25)
[2020-08-26] MEDS ORDERED: morphine 2 MG/ML inj. syringe IV PRN (13:25)
[2020-08-26] MEDS ORDERED: ondansetron/PF 4mg/2ml inj IV PRN (13:25)
[2020-08-26] MEDS ORDERED: meperidine/PF 25mg/ml syringe IV PRN ×2 (13:25)
[2020-08-26 13:37] LABS: HEMATOCRIT 25.2 % (42.0-52.0); HEMOGLOBIN 8.3 g/dl (14.0-17.9); MEAN CORPUSCULAR HEMOGLOBIN 31.7 PG (27.0-31.0); MEAN CORPUSCULAR VOLUME 96.1 FL (78-98); MEAN PLATELET VOLUME 6.8 FL (7.4-10.4); PLATELET COUNT 521 X10'3 (140-440); RED BLOOD COUNT 2.63 X10'6 (4.70-6.10); RED CELL DISTRIBUTION WIDTH 14.9 % (11.5-14.5); WHITE BLOOD COUNT 7.6 X10'3 (4.5-11.0)
[2020-08-26] MEDS: meperidine/PF 25mg/ml syringe IV PRN ×2 (14:37→14:47)
--- NOTE | 2020-08-26 15:03 | NUR ---
Report called to receiving nurse. Transferred via BED Belongings . Special Issues communicated to receiving nurse. AWAKE AND ORIENTED. VITALS STABLE. DRESSING DI. STATES PAIN IMPROVING. NURSE CALIN ON ORTHO WILL GIVE GLUCAGON FOR BS OF 57 TO ORTHO RM 4007 AT THIS TIME.
[2020-08-26] MEDS: dextrose ORAL solution 15 GM/59 ML bottle PO PRN ×3 (15:05→15:46)
--- NOTE | 2020-08-26 18:43 | NUR ---
Problems reprioritized. Patient report given, questions answered & plan of care reviewed with Nahun CHAMBERLAIN.
--- NOTE | 2020-08-26 19:04 | NUR ---
Patient in room ORTHO 4007. I have received report from Sabrina CHAMBERLAIN and had the opportunity to ask questions and assume patient care.
[2020-08-26] MEDS: insulin glargine (Lantus) pen - multi-dose SQ SCH (21:36)
[2020-08-27] MEDS: HYDROcodone/acetaminophen 10/325mg tab PO PRN ×3 (00:44→15:26)
[2020-08-27 02:00] VITALS: BP 130/83
[2020-08-27] MEDS: normal saline 1000ml 1,000 ML IV SCH ×2 (03:37→18:01)
[2020-08-27 05:27] LABS: ALANINE AMINOTRANSFERASE 23 U/L (12-78); ALBUMIN 1.9 G/DL (3.4-5.0); ALBUMIN/GLOBULIN RATIO 0.5 (1.1-1.5); ALKALINE PHOSPHATASE 72 IU/L (46-116); ANION GAP 4 (8-16); ASPARTATE AMINO TRANSFERASE 20 U/L (10-37); BILIRUBIN,TOTAL 0.3 MG/DL (0.1-1.0); BLOOD UREA NITROGEN 10 MG/DL (7-18); CALCIUM 8.3 MG/DL (8.5-10.1); CHLORIDE 104 MMOL/L (99-107); CREATININE 0.77 MG/DL (0.60-1.10); GLUCOSE 80 MG/DL (70-104); POTASSIUM 3.7 MMOL/L (3.5-5.1); SODIUM 138 MMOL/L (135-145); TOTAL CARBON DIOXIDE 30.1 MMOL/L (24-32); TOTAL PROTEIN 6.1 G/DL (6.4-8.2); eGFR > 90 ML/MIN
[2020-08-27 05:37] LABS: BASOPHILS # (AUTO) 0.1 X10'3 (0-0.2); BASOPHILS % (AUTO) 0.6 % (0-1); EOSINOPHILS # (AUTO) 0.1 X10'3 (0-0.9); HEMATOCRIT 25.4 % (42.0-52.0); HEMOGLOBIN 8.6 g/dl (14.0-17.9); LYMPHOCYTES # (AUTO) 1.7 X10'3 (1.1-4.8); LYMPHOCYTES % (AUTO) 16.2 % (21-51); MEAN CORPUSCULAR HEMOGLOBIN 32.5 PG (27.0-31.0); MEAN CORPUSCULAR VOLUME 95.6 FL (78-98); MEAN PLATELET VOLUME 6.4 FL (7.4-10.4); MONOCYTES # (AUTO) 0.8 X10'3 (0-0.9); NEUTROPHILS # (AUTO) 7.9 X10'3 (1.8-7.7); NEUTROPHILS % (AUTO) 74.2 % (42-75); PLATELET COUNT 510 X10'3 (140-440); RED BLOOD COUNT 2.66 X10'6 (4.70-6.10); RED CELL DISTRIBUTION WIDTH 15.6 % (11.5-14.5); WHITE BLOOD COUNT 10.6 X10'3 (4.5-11.0)
[2020-08-27 06:00] VITALS: BP 134/82
--- NOTE | 2020-08-27 06:05 | NUR ---
Problems reprioritized. Patient report given, questions answered & plan of care reviewed with Pebbles CHAMBERLAIN. Addendum: 08/27/20 at 0621 by Nahun Bellamy RN Report was given to PEBBLES
--- NOTE | 2020-08-27 06:05 | NUR ---
I agree with MYLES Pedersen [place] student documentation, assessments, and report he gave to the oncoming shift.
--- NOTE | 2020-08-27 06:27 | NUR ---
Received report from Shukri, student nurse.
--- NOTE | 2020-08-27 06:31 | NUR ---
Patient in room ORTHO 4007. I have received report from Francis CHAMBERLAIN and had the opportunity to ask questions and assume patient care.
[2020-08-27] MEDS: dextrose ORAL solution 15 GM/59 ML bottle PO PRN ×2 (07:33→07:49)
[2020-08-27] MEDS: K and/or MAG REPLACEMENT MC SCH ×2 (08:00→19:02)
[2020-08-27] MEDS: levoFLOXACIN-Levaquin 500mg/D5 100 ML IV SCH (08:12)
[2020-08-27] MEDS: lactobacillus rhamnosus 10,000 MMU CELLS/CAPSULE PO SCH ×2 (08:13→19:49)
[2020-08-27] MEDS: lisinopril 10 MG tablet PO SCH (08:14)
[2020-08-27] MEDS: heparin, porcine 5000 units/ml vial SQ SCH ×2 (08:15→18:38)
--- NOTE | 2020-08-27 12:21 | NUR ---
IR NOTE. Spoke to Dr Cuevas, and notified primary RN of Dr Cuevas's orders. He would like a CTA of left lower extremity tonight at 1800, NPO after midnight, and hold all thinners. He will review CTA tomorrow to determine if angiogram is needed.
[2020-08-27] MEDS: insulin Lispro (HumaLOG) vial - multi-dose SQ SCH (13:15)
[2020-08-27 14:00] VITALS: BP 126/74
[2020-08-27] MEDS ORDERED: iohexol 350MG/ML 100ml bottle IV ONE (16:48)
[2020-08-27 18:00] VITALS: BP 132/81
--- NOTE | 2020-08-27 18:36 | NUR ---
Patient in room ORTHO 4007. I have received report from CINTIA Rogel and had the opportunity to ask questions and assume patient care.
--- NOTE | 2020-08-27 18:49 | NUR ---
Problems reprioritized. Patient report given, questions answered & plan of care reviewed with Enrico.
--- NOTE | 2020-08-27 18:49 | NUR ---
Student documentation: I have reviewed and agree with all interventions, assessments performed and documented by Amira CHAMBERLAIN.
[2020-08-27 22:00] VITALS: BP 144/92
[2020-08-28] MEDS: HYDROcodone/acetaminophen 10/325mg tab PO PRN ×4 (00:33→21:00)
[2020-08-28 05:53] LABS: BASOPHILS # (AUTO) 0.1 X10'3 (0-0.2); BASOPHILS % (AUTO) 0.8 % (0-1); EOSINOPHILS # (AUTO) 0.1 X10'3 (0-0.9); EOSINOPHILS % (AUTO) 1.9 % (0-6); HEMATOCRIT 26.9 % (42.0-52.0); HEMOGLOBIN 9.2 g/dl (14.0-17.9); MEAN CORPUSCULAR HEMOGLOBIN 33.2 PG (27.0-31.0); MEAN CORPUSCULAR HGB CONC 34.1 g/dL (33.0-36.5); MEAN CORPUSCULAR VOLUME 97.4 FL (78-98); MEAN PLATELET VOLUME 6.3 FL (7.4-10.4); MONOCYTES # (AUTO) 0.6 X10'3 (0-0.9); MONOCYTES % (AUTO) 8.5 % (2-12); NEUTROPHILS # (AUTO) 4.5 X10'3 (1.8-7.7); NEUTROPHILS % (AUTO) 61.8 % (42-75); PLATELET COUNT 513 X10'3 (140-440); RED BLOOD COUNT 2.76 X10'6 (4.70-6.10); RED CELL DISTRIBUTION WIDTH 16.1 % (11.5-14.5); WHITE BLOOD COUNT 7.3 X10'3 (4.5-11.0)
[2020-08-28 05:54] LABS: ALANINE AMINOTRANSFERASE 25 U/L (12-78); ALBUMIN/GLOBULIN RATIO 0.4 (1.1-1.5); ALKALINE PHOSPHATASE 79 IU/L (46-116); ANION GAP 4 (8-16); ASPARTATE AMINO TRANSFERASE 21 U/L (10-37); BILIRUBIN,TOTAL 0.4 MG/DL (0.1-1.0); BLOOD UREA NITROGEN 8 MG/DL (7-18); BUN/CREATININE RATIO 10.1 (5.4-32.0); CALCIUM 8.6 MG/DL (8.5-10.1); CHLORIDE 105 MMOL/L (99-107); CREATININE 0.79 MG/DL (0.60-1.10); GLUCOSE 169 MG/DL (70-104); POTASSIUM 3.7 MMOL/L (3.5-5.1); SODIUM 139 MMOL/L (135-145); TOTAL CARBON DIOXIDE 30.1 MMOL/L (24-32); TOTAL PROTEIN 6.5 G/DL (6.4-8.2); eGFR > 90 ML/MIN
[2020-08-28 06:00] VITALS: BP 150/98
--- NOTE | 2020-08-28 06:05 | NUR ---
received report from cintia frederick
--- NOTE | 2020-08-28 06:13 | NUR ---
Problems reprioritized. Patient report given, questions answered & plan of care reviewed with CINTIA Calderon.
[2020-08-28] MEDS: K and/or MAG REPLACEMENT MC SCH ×2 (07:08→20:00)
[2020-08-28] MEDS: normal saline 1000ml 1,000 ML IV SCH ×2 (07:14→19:52)
[2020-08-28] MEDS: levoFLOXACIN-Levaquin 500mg/D5 100 ML IV SCH (07:14)
[2020-08-28] MEDS: lactobacillus rhamnosus 10,000 MMU CELLS/CAPSULE PO SCH ×2 (07:16→21:00)
[2020-08-28] MEDS: lisinopril 10 MG tablet PO SCH (07:16)
[2020-08-28] MEDS: heparin, porcine 5000 units/ml vial SQ SCH ×2 (07:17→21:00)
--- NOTE | 2020-08-28 08:45 | NUR ---
pt is npo this morning, therefore pt not appropriate to admin insulin at this time, continue to monitor
--- NOTE | 2020-08-28 09:07 | NUR ---
spoke w/johnny from [facility], johnny told me that dr fernandes reviewed the pt chart and told johnny to tell me that pt does not need an angiogram, continue to monitor
[2020-08-28 10:00] VITALS: BP 130/77
--- NOTE | 2020-08-28 10:52 | NUR ---
admin heparin b/c pt study and npo diet order had been cancelled, continue to monitor Addendum: 08/28/20 at 1808 by Yumiko Snyder RN ended up admin heparin because pt study was cancelled
[2020-08-28] MEDS: insulin Lispro (HumaLOG) vial - multi-dose SQ SCH ×2 (13:26→18:55)
[2020-08-28 18:00] VITALS: BP 129/82
--- NOTE | 2020-08-28 18:10 | NUR ---
gave report march,
[2020-08-28 22:00] VITALS: BP 119/74
[2020-08-29] MEDS: HYDROcodone/acetaminophen 10/325mg tab PO PRN ×2 (03:14→21:37)
[2020-08-29 06:00] VITALS: BP 133/91
[2020-08-29 06:20] LABS: BASOPHILS % (AUTO) 0.8 % (0-1); EOSINOPHILS # (AUTO) 0.1 X10'3 (0-0.9); EOSINOPHILS % (AUTO) 2.2 % (0-6); HEMATOCRIT 26.6 % (42.0-52.0); HEMOGLOBIN 8.9 g/dl (14.0-17.9); LYMPHOCYTES # (AUTO) 1.6 X10'3 (1.1-4.8); LYMPHOCYTES % (AUTO) 31.7 % (21-51); MEAN CORPUSCULAR HEMOGLOBIN 32.5 PG (27.0-31.0); MEAN CORPUSCULAR HGB CONC 33.6 g/dL (33.0-36.5); MEAN PLATELET VOLUME 6.5 FL (7.4-10.4); MONOCYTES # (AUTO) 0.4 X10'3 (0-0.9); MONOCYTES % (AUTO) 7.2 % (2-12); NEUTROPHILS # (AUTO) 2.9 X10'3 (1.8-7.7); NEUTROPHILS % (AUTO) 58.1 % (42-75); PLATELET COUNT 497 X10'3 (140-440); RED BLOOD COUNT 2.74 X10'6 (4.70-6.10); RED CELL DISTRIBUTION WIDTH 15.8 % (11.5-14.5)
[2020-08-29 06:32] LABS: ALANINE AMINOTRANSFERASE 22 U/L (12-78); ALBUMIN/GLOBULIN RATIO 0.5 (1.1-1.5); ALKALINE PHOSPHATASE 77 IU/L (46-116); ANION GAP 4 (8-16); ASPARTATE AMINO TRANSFERASE 15 U/L (10-37); BILIRUBIN,TOTAL 0.3 MG/DL (0.1-1.0); BLOOD UREA NITROGEN 11 MG/DL (7-18); BUN/CREATININE RATIO 13.8 (5.4-32.0); CALCIUM 8.4 MG/DL (8.5-10.1); CHLORIDE 104 MMOL/L (99-107); GLUCOSE 222 MG/DL (70-104); SODIUM 138 MMOL/L (135-145); TOTAL CARBON DIOXIDE 30.2 MMOL/L (24-32); TOTAL PROTEIN 6.4 G/DL (6.4-8.2); eGFR > 90 ML/MIN
[2020-08-29] MEDS: K and/or MAG REPLACEMENT MC SCH ×2 (08:00→20:00)
[2020-08-29] MEDS: levoFLOXACIN 500mg tablet PO SCH (08:35)
[2020-08-29] MEDS: lisinopril 10 MG tablet PO SCH (08:35)
[2020-08-29] MEDS: lactobacillus rhamnosus 10,000 MMU CELLS/CAPSULE PO SCH ×2 (08:35→21:36)
[2020-08-29] MEDS: heparin, porcine 5000 units/ml vial SQ SCH ×2 (08:36→21:36)
[2020-08-29] MEDS: insulin Lispro (HumaLOG) vial - multi-dose SQ SCH ×2 (08:40→13:20)
[2020-08-29] MEDS: normal saline 1000ml 1,000 ML IV SCH ×2 (09:26→21:37)
[2020-08-29 10:29] VITALS: BP 137/88
[2020-08-29] MEDS: HYDROmorphone 1 mg/ml syringe IV PRN (10:41)
--- NOTE | 2020-08-29 14:20 | NUR ---
Reassessment: Pt PO 100% avg meals meeting needs. LBM 08/27. Meeting healing needs given PO s/p I&D. Will continue to monitor. Rec: 1. continue carb controlled diet 2. routine bowel care 3. wt per rx Addendum: 08/29/20 at [address] Amended: Links added.
[2020-08-29 18:00] VITALS: BP 138/89
--- NOTE | 2020-08-29 18:26 | NUR ---
Problems reprioritized. Patient report given, questions answered & plan of care reviewed with CINTIA Guzman.
[2020-08-29 22:20] VITALS: BP 154/106
[2020-08-30] MEDS: HYDROcodone/acetaminophen 10/325mg tab PO PRN ×3 (05:08→19:44)
[2020-08-30 05:38] LABS: BASOPHILS # (AUTO) 0.1 X10'3 (0-0.2); EOSINOPHILS # (AUTO) 0.1 X10'3 (0-0.9); EOSINOPHILS % (AUTO) 2.4 % (0-6); HEMATOCRIT 28.7 % (42.0-52.0); HEMOGLOBIN 9.6 g/dl (14.0-17.9); LYMPHOCYTES # (AUTO) 1.6 X10'3 (1.1-4.8); LYMPHOCYTES % (AUTO) 28.6 % (21-51); MEAN CORPUSCULAR HEMOGLOBIN 32.2 PG (27.0-31.0); MEAN CORPUSCULAR HGB CONC 33.4 g/dL (33.0-36.5); MEAN CORPUSCULAR VOLUME 96.4 FL (78-98); MEAN PLATELET VOLUME 6.1 FL (7.4-10.4); MONOCYTES # (AUTO) 0.4 X10'3 (0-0.9); MONOCYTES % (AUTO) 7.6 % (2-12); NEUTROPHILS # (AUTO) 3.3 X10'3 (1.8-7.7); NEUTROPHILS % (AUTO) 60.4 % (42-75); PLATELET COUNT 519 X10'3 (140-440); RED BLOOD COUNT 2.98 X10'6 (4.70-6.10); RED CELL DISTRIBUTION WIDTH 15.9 % (11.5-14.5); WHITE BLOOD COUNT 5.5 X10'3 (4.5-11.0)
[2020-08-30 07:08] LABS: ALANINE AMINOTRANSFERASE 26 U/L (12-78); ALBUMIN 2.3 G/DL (3.4-5.0); ALBUMIN/GLOBULIN RATIO 0.5 (1.1-1.5); ALKALINE PHOSPHATASE 82 IU/L (46-116); ANION GAP 7 (8-16); ASPARTATE AMINO TRANSFERASE 17 U/L (10-37); BILIRUBIN,TOTAL 0.3 MG/DL (0.1-1.0); BLOOD UREA NITROGEN 11 MG/DL (7-18); BUN/CREATININE RATIO 12.4 (5.4-32.0); CALCIUM 8.6 MG/DL (8.5-10.1); CHLORIDE 101 MMOL/L (99-107); CREATININE 0.89 MG/DL (0.60-1.10); GLUCOSE 206 MG/DL (70-104); POTASSIUM 4.1 MMOL/L (3.5-5.1); SODIUM 136 MMOL/L (135-145); TOTAL CARBON DIOXIDE 27.7 MMOL/L (24-32); TOTAL PROTEIN 7.1 G/DL (6.4-8.2); eGFR > 90 ML/MIN
[2020-08-30] MEDS: K and/or MAG REPLACEMENT MC SCH ×2 (08:00→20:00)
[2020-08-30 08:10] VITALS: BP 169/107
[2020-08-30] MEDS: insulin Lispro (HumaLOG) vial - multi-dose SQ SCH ×3 (09:06→19:40)
[2020-08-30] MEDS: normal saline 1000ml 1,000 ML IV SCH ×2 (09:22→21:52)
--- NOTE | 2020-08-30 09:29 | NUR ---
Patient in room ORTHO 4007. I have received report from CINTIA Guzman and had the opportunity to ask questions and assume patient care.
[2020-08-30] MEDS: lactobacillus rhamnosus 10,000 MMU CELLS/CAPSULE PO SCH ×2 (09:58→19:43)
[2020-08-30] MEDS: levoFLOXACIN 500mg tablet PO SCH (09:58)
[2020-08-30 10:00] VITALS: BP 114/75
[2020-08-30] MEDS: heparin, porcine 5000 units/ml vial SQ SCH ×2 (10:03→19:43)
[2020-08-30] MEDS: lisinopril 10 MG tablet PO SCH (10:08)
--- NOTE | 2020-08-30 11:28 | NUR ---
Student Medication Administration: For this medication-pass time frame 2922-1516, all medications were reviewed,administered and documented per hospital policy by Delano Young. Student documentation:I have reviewed and agree with all interventions, assessments performed and documented by Delano Young.
[2020-08-30 18:00] VITALS: BP 152/90
--- NOTE | 2020-08-30 18:20 | NUR ---
Patient in room ORTHO 4007. I have received report from Alla CHAMBERLAIN and had the opportunity to ask questions and assume patient care.
--- NOTE | 2020-08-30 18:48 | NUR ---
Problems reprioritized. Patient report given, questions answered & plan of care reviewed with CINTIA Pierce.
[2020-08-30 22:00] VITALS: BP 140/80
[2020-08-31 06:00] VITALS: BP 135/83
[2020-08-31 06:02] LABS: ALANINE AMINOTRANSFERASE 35 U/L (12-78); ALBUMIN 2.3 G/DL (3.4-5.0); ALBUMIN/GLOBULIN RATIO 0.5 (1.1-1.5); ALKALINE PHOSPHATASE 83 IU/L (46-116); ANION GAP 4 (8-16); ASPARTATE AMINO TRANSFERASE 26 U/L (10-37); BILIRUBIN,TOTAL 0.2 MG/DL (0.1-1.0); BLOOD UREA NITROGEN 17 MG/DL (7-18); BUN/CREATININE RATIO 19.8 (5.4-32.0); CALCIUM 8.6 MG/DL (8.5-10.1); CHLORIDE 103 MMOL/L (99-107); CREATININE 0.86 MG/DL (0.60-1.10); GLUCOSE 212 MG/DL (70-104); POTASSIUM 4.1 MMOL/L (3.5-5.1); SODIUM 136 MMOL/L (135-145); TOTAL CARBON DIOXIDE 29.1 MMOL/L (24-32); TOTAL PROTEIN 6.8 G/DL (6.4-8.2); eGFR > 90 ML/MIN
--- NOTE | 2020-08-31 06:10 | NUR ---
Problems reprioritized. Patient report given, questions answered & plan of care reviewed with Karen CHAMBERLAIN.
--- NOTE | 2020-08-31 06:20 | NUR ---
Patient in room ORTHO 4007. I have received report from Mukul and had the opportunity to ask questions and assume patient care.
[2020-08-31] MEDS: K and/or MAG REPLACEMENT MC SCH ×2 (07:19→19:50)
[2020-08-31] MEDS: lactobacillus rhamnosus 10,000 MMU CELLS/CAPSULE PO SCH ×2 (08:06→19:50)
[2020-08-31] MEDS: levoFLOXACIN 500mg tablet PO SCH (08:06)
[2020-08-31] MEDS: lisinopril 10 MG tablet PO SCH (08:07)
[2020-08-31] MEDS: heparin, porcine 5000 units/ml vial SQ SCH ×2 (08:08→19:50)
[2020-08-31] MEDS: insulin Lispro (HumaLOG) vial - multi-dose SQ SCH ×3 (08:44→19:55)
[2020-08-31] MEDS: HYDROcodone/acetaminophen 10/325mg tab PO PRN ×2 (09:57→20:03)
[2020-08-31 10:00] VITALS: BP 137/90
[2020-08-31] MEDS: normal saline 1000ml 1,000 ML IV SCH (14:04)
[2020-08-31 18:00] VITALS: BP 137/80
--- NOTE | 2020-08-31 18:27 | NUR ---
Problems reprioritized. Patient report given, questions answered & plan of care reviewed with
--- NOTE | 2020-08-31 18:42 | NUR ---
Patient in room ORTHO 4007. I have received report from Karen CHAMBERLAIN and had the opportunity to ask questions and assume patient care.
[2020-08-31 22:00] VITALS: BP 139/91
[2020-08-31] MEDS: Dakins solution (1/4 strength) 473ml solution TP SCH (23:34)
[2020-09-01] MEDS: normal saline 1000ml 1,000 ML IV SCH ×2 (02:11→13:52)
[2020-09-01] MEDS: HYDROcodone/acetaminophen 10/325mg tab PO PRN ×2 (05:49→14:47)
[2020-09-01 06:00] VITALS: BP 137/85
--- NOTE | 2020-09-01 06:25 | NUR ---
Patient in room ORTHO 4007. I have received report from Deanna and had the opportunity to ask questions and assume patient care.
--- NOTE | 2020-09-01 06:27 | NUR ---
Problems reprioritized. Patient report given, questions answered & plan of care reviewed with Karen CHAMBERLAIN.
[2020-09-01] MEDS: K and/or MAG REPLACEMENT MC SCH ×2 (08:00→19:23)
[2020-09-01] MEDS: Dakins solution (1/4 strength) 473ml solution TP SCH ×2 (08:54→21:55)
[2020-09-01] MEDS: levoFLOXACIN 500mg tablet PO SCH (08:54)
[2020-09-01] MEDS: lactobacillus rhamnosus 10,000 MMU CELLS/CAPSULE PO SCH ×2 (08:54→19:23)
[2020-09-01] MEDS: lisinopril 10 MG tablet PO SCH (08:56)
[2020-09-01] MEDS: heparin, porcine 5000 units/ml vial SQ SCH ×2 (09:00→19:23)
[2020-09-01] MEDS: insulin Lispro (HumaLOG) vial - multi-dose SQ SCH ×3 (09:11→19:25)
[2020-09-01 18:00] VITALS: BP 135/82
--- NOTE | 2020-09-01 18:14 | NUR ---
Problems reprioritized. Patient report given, questions answered & plan of care reviewed with
--- NOTE | 2020-09-01 18:22 | NUR ---
Patient in room ORTHO 4007. I have received report from Karen CHAMBERLAIN and had the opportunity to ask questions and assume patient care.
[2020-09-01] MEDS: insulin glargine (Lantus) pen - multi-dose SQ SCH (21:59)
[2020-09-01 22:00] VITALS: BP 143/84
[2020-09-02] MEDS: normal saline 1000ml 1,000 ML IV SCH ×2 (01:02→12:38)
[2020-09-02] MEDS: HYDROcodone/acetaminophen 10/325mg tab PO PRN ×2 (04:41→19:27)
[2020-09-02 06:00] VITALS: BP 148/89
--- NOTE | 2020-09-02 06:20 | NUR ---
Patient in room ORTHO 4007. I have received report from Deanna and had the opportunity to ask questions and assume patient care.
--- NOTE | 2020-09-02 06:22 | NUR ---
Problems reprioritized. Patient report given, questions answered & plan of care reviewed with Karen CHAMBERLAIN.
[2020-09-02 06:28] LABS: BASOPHILS # (AUTO) 0.1 X10'3 (0-0.2); EOSINOPHILS # (AUTO) 0.2 X10'3 (0-0.9); EOSINOPHILS % (AUTO) 3.1 % (0-6); HEMATOCRIT 27.9 % (42.0-52.0); HEMOGLOBIN 9.4 g/dl (14.0-17.9); LYMPHOCYTES # (AUTO) 1.4 X10'3 (1.1-4.8); LYMPHOCYTES % (AUTO) 28.5 % (21-51); MEAN CORPUSCULAR HEMOGLOBIN 32.8 PG (27.0-31.0); MEAN CORPUSCULAR HGB CONC 33.7 g/dL (33.0-36.5); MEAN CORPUSCULAR VOLUME 97.5 FL (78-98); MEAN PLATELET VOLUME 6.5 FL (7.4-10.4); MONOCYTES # (AUTO) 0.3 X10'3 (0-0.9); MONOCYTES % (AUTO) 6.3 % (2-12); NEUTROPHILS # (AUTO) 3.1 X10'3 (1.8-7.7); NEUTROPHILS % (AUTO) 61.1 % (42-75); PLATELET COUNT 425 X10'3 (140-440); RED BLOOD COUNT 2.86 X10'6 (4.70-6.10); RED CELL DISTRIBUTION WIDTH 15.9 % (11.5-14.5)
--- NOTE | 2020-09-02 06:49 | NUR ---
Patient in room ORTHO 4007. I have received report from Deanna CHAMBERLAIN and had the opportunity to ask questions and assume patient care.
[2020-09-02 07:02] LABS: ALANINE AMINOTRANSFERASE 39 U/L (12-78); ALBUMIN 2.3 G/DL (3.4-5.0); ALBUMIN/GLOBULIN RATIO 0.5 (1.1-1.5); ALKALINE PHOSPHATASE 70 IU/L (46-116); ANION GAP 5 (8-16); ASPARTATE AMINO TRANSFERASE 26 U/L (10-37); BILIRUBIN,TOTAL 0.2 MG/DL (0.1-1.0); BLOOD UREA NITROGEN 17 MG/DL (7-18); BUN/CREATININE RATIO 18.9 (5.4-32.0); CHLORIDE 102 MMOL/L (99-107); GLUCOSE 225 MG/DL (70-104); POTASSIUM 3.9 MMOL/L (3.5-5.1); SODIUM 136 MMOL/L (135-145); TOTAL CARBON DIOXIDE 28.7 MMOL/L (24-32); TOTAL PROTEIN 6.6 G/DL (6.4-8.2); eGFR > 90 ML/MIN
[2020-09-02] MEDS: K and/or MAG REPLACEMENT MC SCH ×2 (07:43→20:00)
[2020-09-02] MEDS: lactobacillus rhamnosus 10,000 MMU CELLS/CAPSULE PO SCH ×2 (08:50→19:25)
[2020-09-02] MEDS: levoFLOXACIN 500mg tablet PO SCH (08:50)
[2020-09-02] MEDS: lisinopril 10 MG tablet PO SCH (08:52)
[2020-09-02] MEDS: heparin, porcine 5000 units/ml vial SQ SCH ×2 (08:53→19:25)
[2020-09-02] MEDS: insulin Lispro (HumaLOG) vial - multi-dose SQ SCH ×3 (09:08→19:24)
[2020-09-02 10:00] VITALS: BP 123/72
[2020-09-02] MEDS: Dakins solution (1/4 strength) 473ml solution TP SCH (10:31)
[2020-09-02] MEDS: dextrose ORAL solution 15 GM/59 ML bottle PO PRN ×2 (12:19→12:47)
[2020-09-02] MEDS: HYDROmorphone 1 mg/ml syringe IV PRN (13:52)
[2020-09-02 18:00] VITALS: BP 148/96
--- NOTE | 2020-09-02 18:24 | NUR ---
Problems reprioritized. Patient report given, questions answered & plan of care reviewed with
--- NOTE | 2020-09-02 18:36 | NUR ---
Patient in room ORTHO 4007. I have received report from RUT CHAMBERLAIN and had the opportunity to ask questions and assume patient care.
[2020-09-02 22:00] VITALS: BP 129/79
[2020-09-03] VITALS (16 sets, daily range): BP systolic 101–155; BP diastolic 63–104
[2020-09-03] MEDS: normal saline 1000ml 1,000 ML IV SCH ×2 (00:52→12:27)
[2020-09-03 06:08] LABS: BASOPHILS % (AUTO) 0.7 % (0-1); EOSINOPHILS # (AUTO) 0.2 X10'3 (0-0.9); EOSINOPHILS % (AUTO) 3.4 % (0-6); HEMATOCRIT 30.8 % (42.0-52.0); HEMOGLOBIN 10.4 g/dl (14.0-17.9); LYMPHOCYTES # (AUTO) 1.5 X10'3 (1.1-4.8); LYMPHOCYTES % (AUTO) 29.1 % (21-51); MEAN CORPUSCULAR HEMOGLOBIN 32.7 PG (27.0-31.0); MEAN CORPUSCULAR HGB CONC 33.8 g/dL (33.0-36.5); MEAN CORPUSCULAR VOLUME 96.7 FL (78-98); MEAN PLATELET VOLUME 6.5 FL (7.4-10.4); MONOCYTES # (AUTO) 0.3 X10'3 (0-0.9); MONOCYTES % (AUTO) 6.6 % (2-12); NEUTROPHILS # (AUTO) 3.1 X10'3 (1.8-7.7); NEUTROPHILS % (AUTO) 60.2 % (42-75); PLATELET COUNT 416 X10'3 (140-440); RED BLOOD COUNT 3.19 X10'6 (4.70-6.10); RED CELL DISTRIBUTION WIDTH 15.9 % (11.5-14.5); WHITE BLOOD COUNT 5.2 X10'3 (4.5-11.0)
[2020-09-03 06:25] LABS: ALANINE AMINOTRANSFERASE 43 U/L (12-78); ALBUMIN 2.6 G/DL (3.4-5.0); ALBUMIN/GLOBULIN RATIO 0.6 (1.1-1.5); ALKALINE PHOSPHATASE 77 IU/L (46-116); ANION GAP 4 (8-16); ASPARTATE AMINO TRANSFERASE 23 U/L (10-37); BILIRUBIN,TOTAL 0.3 MG/DL (0.1-1.0); BLOOD UREA NITROGEN 17 MG/DL (7-18); BUN/CREATININE RATIO 19.8 (5.4-32.0); CALCIUM 8.6 MG/DL (8.5-10.1); CHLORIDE 102 MMOL/L (99-107); CREATININE 0.86 MG/DL (0.60-1.10); GLUCOSE 215 MG/DL (70-104); POTASSIUM 4.2 MMOL/L (3.5-5.1); SODIUM 135 MMOL/L (135-145); TOTAL CARBON DIOXIDE 29.1 MMOL/L (24-32); TOTAL PROTEIN 7.3 G/DL (6.4-8.2); eGFR > 90 ML/MIN
[2020-09-03] MEDS: Dakins solution (1/4 strength) 473ml solution TP SCH ×3 (07:13→19:55)
[2020-09-03] MEDS: lactobacillus rhamnosus 10,000 MMU CELLS/CAPSULE PO SCH ×2 (08:00→20:52)
[2020-09-03] MEDS: K and/or MAG REPLACEMENT MC SCH ×2 (08:00→19:55)
[2020-09-03] MEDS: heparin, porcine 5000 units/ml vial SQ SCH ×2 (08:00→20:52)
[2020-09-03] MEDS: lisinopril 10 MG tablet PO SCH ×2 (08:00→12:23)
[2020-09-03] MEDS ORDERED: sevoflurane 250ml liquid IH ONE (08:10)
[2020-09-03] MEDS ORDERED: fentaNYL/PF 50MCG/1 ML 2ML syringe ONE (08:11)
[2020-09-03] MEDS ORDERED: midazolam 2 mg/2 ml injection ONE (08:12)
[2020-09-03] MEDS ORDERED: morphine 4 MG/ML inj SYRINge IV PRN (08:50)
[2020-09-03] MEDS ORDERED: proCHLORperazine 10 MG/2 ml inj IV PRN (08:50)
[2020-09-03] MEDS ORDERED: morphine 2 MG/ML inj. syringe IV PRN (08:50)
[2020-09-03] MEDS ORDERED: meperidine/PF 25mg/ml syringe IV PRN ×3 (08:50)
[2020-09-03] MEDS ORDERED: ringers solution, lacted 1,000 ML IV SCH (08:50)
[2020-09-03] MEDS ORDERED: ondansetron/PF 4mg/2ml inj IV PRN (08:50)
[2020-09-03] MEDS ORDERED: ondansetron/PF 4mg/2ml inj ONE (09:03)
[2020-09-03] MEDS ORDERED: LIDOcaine 2% (20mg/ml) 5ml vial ONE (09:03)
[2020-09-03] MEDS ORDERED: propofol inj 20 ML IV ONE (09:03)
--- NOTE | 2020-09-03 09:15 | NUR ---
Received from OR via BED, accompanied by Anesthesiologist ESPERANZA and report given by Anesthesiolgist. PT SLEEPY, OXYGENATING WELL ON 10 LPM O2 VIA MASK, NO RESP DISTRESS NOTED. DENIES NAUSEA, C/O 6/10 PAIN IN L FOOT. MEDICATED PRN, SEE EMAR. WOUND VAC DSG TO LEFT FOOT, COVERED BY LY BANDAGE. CDI. SCDS ON. VSS.
--- NOTE | 2020-09-03 10:05 | NUR ---
Report called to receiving nurse. Transferred via BED Belongings IN PT ROOM. PAIN LEVEL TRENDING DOWN AFTER MEDS GIVEN. TOLERATING PO FLUIDS WELL. PIV WAS INFILTRATED, 20G TO R HAND STARTED. POST OP ACCU CHECK 155. VSS, MILDLY HYPERTENSIVE. FLOOR RN WILL GIVE BP MEDS. TRANSFERRED BACK TO ORTHO IN STABLE CONDITION. Special Issues communicated to receiving nurse.
--- NOTE | 2020-09-03 10:09 | NUR ---
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 Pt continues with 75-100% PO intake on CHO controlled diet while receiving double protein TID meeting nutrient needs with adequate protein to support wound healing. LBM 09/01. No further nutrition intervention implemented at this time. Will continue to follow. Rec: 1. continue carb controlled diet 2. double eggs q breakfast, double meat BIDLD 3. routine bowel care 4. wt per rx Addendum: 09/03/20 at [address] Amended: Links added.
[2020-09-03] MEDS: HYDROcodone/acetaminophen 10/325mg tab PO PRN (12:26)
[2020-09-03] MEDS: levoFLOXACIN 500mg tablet PO SCH (12:26)
[2020-09-03] MEDS: HYDROmorphone inj. 0.5 MG/0.5 ML DISP.SYRIN IV PRN (13:39)
[2020-09-03] MEDS: insulin Lispro (HumaLOG) vial - multi-dose SQ SCH ×2 (13:43→19:00)
[2020-09-03] MEDS: oxyCODONE IR 5mg (immed. release) tablet PO PRN (17:36)
--- NOTE | 2020-09-03 18:32 | NUR ---
Patient in room ORTHO 4007. I have received report from Sabrina CHAMBERLAIN and had the opportunity to ask questions and assume patient care.
--- NOTE | 2020-09-03 19:00 | NUR ---
insulin checked with 2nd RN, Sabrina Taylor.
[2020-09-03] MEDS: dextrose ORAL solution 15 GM/59 ML bottle PO PRN ×3 (20:53→21:40)
[2020-09-03] MEDS: HYDROmorphone 1 mg/ml syringe IV PRN (20:59)
[2020-09-03] MEDS: insulin glargine (Lantus) pen - multi-dose SQ SCH (21:00)
[2020-09-04] MEDS: normal saline 1000ml 1,000 ML IV SCH ×3 (01:04→19:10)
[2020-09-04] MEDS: oxyCODONE IR 5mg (immed. release) tablet PO PRN ×3 (01:11→19:11)
--- NOTE | 2020-09-04 01:38 | NUR ---
reviewed and agree with student environmental geologist
[2020-09-04 02:00] VITALS: BP 144/90
[2020-09-04] MEDS: HYDROmorphone 1 mg/ml syringe IV PRN (04:14)
[2020-09-04 05:51] LABS: BASOPHILS % (AUTO) 0.6 % (0-1); EOSINOPHILS # (AUTO) 0.1 X10'3 (0-0.9); EOSINOPHILS % (AUTO) 1.6 % (0-6); HEMATOCRIT 27.2 % (42.0-52.0); LYMPHOCYTES # (AUTO) 1.3 X10'3 (1.1-4.8); MEAN CORPUSCULAR HEMOGLOBIN 32.2 PG (27.0-31.0); MEAN CORPUSCULAR HGB CONC 33.2 g/dL (33.0-36.5); MEAN CORPUSCULAR VOLUME 97.2 FL (78-98); MEAN PLATELET VOLUME 6.7 FL (7.4-10.4); MONOCYTES # (AUTO) 0.6 X10'3 (0-0.9); MONOCYTES % (AUTO) 8.2 % (2-12); NEUTROPHILS # (AUTO) 5.4 X10'3 (1.8-7.7); NEUTROPHILS % (AUTO) 72.6 % (42-75); PLATELET COUNT 342 X10'3 (140-440); WHITE BLOOD COUNT 7.4 X10'3 (4.5-11.0)
[2020-09-04 06:00] VITALS: BP 159/96
[2020-09-04 06:01] LABS: ALANINE AMINOTRANSFERASE 29 U/L (12-78); ALBUMIN 2.4 G/DL (3.4-5.0); ALBUMIN/GLOBULIN RATIO 0.6 (1.1-1.5); ALKALINE PHOSPHATASE 69 IU/L (46-116); ANION GAP 5 (8-16); ASPARTATE AMINO TRANSFERASE 14 U/L (10-37); BILIRUBIN,TOTAL 0.2 MG/DL (0.1-1.0); BLOOD UREA NITROGEN 16 MG/DL (7-18); BUN/CREATININE RATIO 18.2 (5.4-32.0); CALCIUM 8.6 MG/DL (8.5-10.1); CHLORIDE 103 MMOL/L (99-107); CREATININE 0.88 MG/DL (0.60-1.10); GLUCOSE 275 MG/DL (70-104); POTASSIUM 3.8 MMOL/L (3.5-5.1); SODIUM 137 MMOL/L (135-145); TOTAL CARBON DIOXIDE 29.5 MMOL/L (24-32); TOTAL PROTEIN 6.5 G/DL (6.4-8.2); eGFR > 90 ML/MIN
--- NOTE | 2020-09-04 06:22 | NUR ---
Problems reprioritized. Patient report given, questions answered & plan of care reviewed with CINTIA Cadena.
[2020-09-04] MEDS: K and/or MAG REPLACEMENT MC SCH ×2 (08:00→20:00)
[2020-09-04] MEDS: Dakins solution (1/4 strength) 473ml solution TP SCH ×2 (08:00→20:00)
[2020-09-04] MEDS: insulin Lispro (HumaLOG) vial - multi-dose SQ SCH ×3 (09:32→19:14)
[2020-09-04 10:00] VITALS: BP 160/97
[2020-09-04] MEDS: lisinopril 10 MG tablet PO SCH (10:15)
[2020-09-04] MEDS: lactobacillus rhamnosus 10,000 MMU CELLS/CAPSULE PO SCH ×2 (10:16→19:10)
[2020-09-04] MEDS: levoFLOXACIN 500mg tablet PO SCH (10:16)
[2020-09-04] MEDS: heparin, porcine 5000 units/ml vial SQ SCH ×2 (10:20→19:11)
[2020-09-04] MEDS: dextrose ORAL solution 15 GM/59 ML bottle PO PRN (16:12)
[2020-09-04 18:00] VITALS: BP 149/90
--- NOTE | 2020-09-04 18:15 | NUR ---
Patient in room ORTHO 4007. I have received report from Clarisa CHAMBERLAIN and had the opportunity to ask questions and assume patient care.
--- NOTE | 2020-09-04 18:30 | NUR ---
Problems reprioritized. Patient report given, questions answered & plan of care reviewed with Mukul CHAMBERLAIN.
[2020-09-04 22:00] VITALS: BP 146/74
[2020-09-04] MEDS: insulin glargine (Lantus) pen - multi-dose SQ SCH (22:46)
[2020-09-05] MEDS: oxyCODONE IR 5mg (immed. release) tablet PO PRN ×2 (05:17→09:56)
[2020-09-05 06:10] VITALS: BP 141/95
[2020-09-05 06:20] LABS: ALANINE AMINOTRANSFERASE 34 U/L (12-78); ALBUMIN 2.7 G/DL (3.4-5.0); ALBUMIN/GLOBULIN RATIO 0.6 (1.1-1.5); ALKALINE PHOSPHATASE 75 IU/L (46-116); ANION GAP 7 (8-16); ASPARTATE AMINO TRANSFERASE 16 U/L (10-37); BILIRUBIN,TOTAL 0.3 MG/DL (0.1-1.0); BLOOD UREA NITROGEN 13 MG/DL (7-18); BUN/CREATININE RATIO 17.1 (5.4-32.0); CALCIUM 8.8 MG/DL (8.5-10.1); CHLORIDE 102 MMOL/L (99-107); CREATININE 0.76 MG/DL (0.60-1.10); GLUCOSE 165 MG/DL (70-104); POTASSIUM 3.8 MMOL/L (3.5-5.1); SODIUM 138 MMOL/L (135-145); TOTAL CARBON DIOXIDE 29.2 MMOL/L (24-32); TOTAL PROTEIN 7.5 G/DL (6.4-8.2); eGFR > 90 ML/MIN
--- NOTE | 2020-09-05 06:40 | NUR ---
Problems reprioritized. Patient report given, questions answered & plan of care reviewed with Clarisa CHAMBERLAIN.
[2020-09-05] MEDS: K and/or MAG REPLACEMENT MC SCH (08:00)
[2020-09-05] MEDS: Dakins solution (1/4 strength) 473ml solution TP SCH (08:00)
[2020-09-05] MEDS: lactobacillus rhamnosus 10,000 MMU CELLS/CAPSULE PO SCH (08:34)
[2020-09-05] MEDS: levoFLOXACIN 500mg tablet PO SCH (08:34)
[2020-09-05] MEDS: lisinopril 10 MG tablet PO SCH (08:34)
[2020-09-05] MEDS: heparin, porcine 5000 units/ml vial SQ SCH (08:35)
--- NOTE | 2020-09-05 09:20 | NUR ---
PAGER ID: [phone] MESSAGE: [phone] Alfredo Lopez Can we give the patient his ORAL diabetic meds, he has dropped off the protocol twice in 24hrs, And get a PTEval order Clarisa [phone]
[2020-09-05 09:51] LABS: BASOPHILS % (AUTO) 0.8 % (0-1); EOSINOPHILS # (AUTO) 0.1 X10'3 (0-0.9); EOSINOPHILS % (AUTO) 2.4 % (0-6); HEMATOCRIT 29.7 % (42.0-52.0); HEMOGLOBIN 9.8 g/dl (14.0-17.9); LYMPHOCYTES # (AUTO) 1.1 X10'3 (1.1-4.8); LYMPHOCYTES % (AUTO) 19.2 % (21-51); MEAN CORPUSCULAR HEMOGLOBIN 32.2 PG (27.0-31.0); MEAN CORPUSCULAR HGB CONC 33.1 g/dL (33.0-36.5); MEAN CORPUSCULAR VOLUME 97.5 FL (78-98); MEAN PLATELET VOLUME 6.8 FL (7.4-10.4); MONOCYTES # (AUTO) 0.4 X10'3 (0-0.9); MONOCYTES % (AUTO) 7.1 % (2-12); NEUTROPHILS # (AUTO) 4.2 X10'3 (1.8-7.7); NEUTROPHILS % (AUTO) 70.5 % (42-75); PLATELET COUNT 324 X10'3 (140-440); RED BLOOD COUNT 3.05 X10'6 (4.70-6.10); RED CELL DISTRIBUTION WIDTH 15.9 % (11.5-14.5); WHITE BLOOD COUNT 5.9 X10'3 (4.5-11.0)
[2020-09-05] MEDS: normal saline 1000ml 1,000 ML IV SCH (09:59)
[2020-09-05 11:00] VITALS: BP 134/86
--- NOTE | 2020-09-05 15:21 | NUR ---
WOUND VAC EDUCATION PROVIDED BY WOUND CARE 1. Patient instructed to call the Wound Center or their Home Health Agency immediately if: * They notice a change in the color or amount of the fluid in the canister. * Their wound looks more red than usual or has a foul smell. * The skin around their wound looks reddened or irritated. * The dressing feels loose or appears to be loose. * They experience any increase or changes in their pain. * The alarm will not turn off. 2. Patient instructed that they should not be disconnected from suction for more than 2 hours at a time. * If they are not able to get the suction back on, they need to remove the dressing and take all of the foam out of the wound. * Then moisten sterile gauze with normal saline and place on/in the wound. * Change the dressing once a day until arrangements have been made to replace the wound vac dressing. 3. Patient instructed to turn the wound vac machine OFF and call 911 or go to the ED immediately if their canister fills rapidly with blood. 4. If any of these occur while in the hospital tell a nurse immediately. Addendum: 09/05/20 at 1522 by Olga Orta RN Amended: Links added.
[2020-09-05] MEDS ORDERED: LEVO500T89 PO (16:13)
[2020-09-05] MEDS ORDERED: pneumococcal 23-VAL P-sac vacc 25 mcg/0.5ml vial IMVAC ONE (16:50)
[2020-09-05] MEDS ORDERED: metFORMIN 500mg tablet PO SCH (17:30)
--- NOTE | 2020-09-05 17:46 | NUR ---
Patient found smoking in bathroom prior to discharge. Wound Vac applied, given discharge instructions, IV discontinued, miguel richardson called to take to get medications from [facility] [address] then to [facility]. Patient asked if he could take the WOC off at the hotel I educated him not to but to return on Saturday at 1140 to his wound clinic appointment.
--- NOTE | 2020-09-05 18:10 | NUR ---
There was no pharmacy noted in chart, called prescription in to [facility] [address]. Info given to charges in report.
[2020-09-06] MEDS ORDERED: pneumococcal 23-VAL P-sac vacc 25 mcg/0.5ml vial IMVAC ONE (10:00)
== END 2020-09-05 18:00 | disposition home or self-care (01) | DRG 314 ==
LOC: ER 17:02 → ED HOLD 21:00 → EDBEDREQ 21:26 → SUR 3N 21:50 → ORTHO 4S 08-20 18:02
PROVIDERS: ADMIT Internal Medicine; ATTEND Family Medicine
PROC: 3E0234Z Introduction of Serum, Toxoid and Vaccine into Muscle, Percutaneous Approach (ICD-10-PCS; 2020-08-20)
PROC: 0HBNXZZ Excision of Left Foot Skin, External Approach (ICD-10-PCS; 2020-08-22)
PROC: 30233N1 Transfusion of Nonautologous Red Blood Cells into Peripheral Vein, Percutaneous Approach (ICD-10-PCS; 2020-08-24)
PROC: 0JBR0ZZ Excision of Left Foot Subcutaneous Tissue and Fascia, Open Approach (ICD-10-PCS; 2020-08-26)
PROC: B42G1ZZ Computerized Tomography (CT Scan) of Left Lower Extremity Arteries using Low Osmolar Contrast (ICD-10-PCS; 2020-08-27)
PROC: 0Y6U0Z0 Detachment at Left 3rd Toe, Complete, Open Approach (ICD-10-PCS; 2020-09-03)
PROC: 0Y6S0Z0 Detachment at Left 2nd Toe, Complete, Open Approach (ICD-10-PCS; principal; 2020-09-03 08:10)
DX: E11.69 Type 2 diabetes mellitus with other specified complication (principal); M86.172 Other acute osteomyelitis, left ankle and foot; L97.529 Non-pressure chronic ulcer of other part of left foot with unspecified severity; D64.9 Anemia, unspecified; E11.621 Type 2 diabetes mellitus with foot ulcer; E44.1 Mild protein-calorie malnutrition; F17.200 Nicotine dependence, unspecified, uncomplicated; E87.1 Hypo-osmolality and hyponatremia; B95.4 Other streptococcus as the cause of diseases classified elsewhere; E11.40 Type 2 diabetes mellitus with diabetic neuropathy, unspecified; E87.6 Hypokalemia; L02.612 Cutaneous abscess of left foot; E11.65 Type 2 diabetes mellitus with hyperglycemia; I10 Essential (primary) hypertension; L03.116 Cellulitis of left lower limb; Z59.0 Homelessness; Z68.1 Body mass index [BMI] 19.9 or less, adult; Z79.899 Other long term (current) drug therapy
CPT/HCPCS: 36415; 36430; 73630; 73706; 73720; 80053; 80202; 82948; 83036; 83605; 84145; 85007; 85025; 85027; 85610; 85651; 85730; 86140; 86885; 86900; 86901; 86920; 87040; 87070; 87075; 87077; 87081; 87186; 90715; 90732; 93005; 97110; 97116; 97161; 97530; 97760; 99285; A4618; A6222; A6446; A6449; A6550; A7000; G0378; J0692; J1170; J1644; J1815; J1956; J2001; J2175; J2250; J2270; J2405; J2704; J3010; J3370; J3490; J7030; J7120; P9016; Q9967

== ENCOUNTER 2020-09-07 12:00 | Day surgery (SDC) | payer MEDICAID ==
[~2020-09-07 12:00] MED LIST: GLYB5TAB7 PO; LEVO500T89 PO; LISI40TA4 PO; METF500T PO
[2020-09-07] MEDS ORDERED: LIDOcaine 2% 5ml jelly ONE (14:28)
== END 2020-09-07 16:30 | disposition home or self-care (01) ==
LOC: WOUND CARE 12:00
PROVIDERS: ATTEND Nurse Practitioner
DX: T81.89XA Other complications of procedures, not elsewhere classified, initial encounter (principal); E11.621 Type 2 diabetes mellitus with foot ulcer; L97.422 Non-pressure chronic ulcer of left heel and midfoot with fat layer exposed; L97.522 Non-pressure chronic ulcer of other part of left foot with fat layer exposed; I10 Essential (primary) hypertension; E11.65 Type 2 diabetes mellitus with hyperglycemia; E78.1 Pure hyperglyceridemia; E87.6 Hypokalemia; E44.1 Mild protein-calorie malnutrition; E11.40 Type 2 diabetes mellitus with diabetic neuropathy, unspecified; E11.649 Type 2 diabetes mellitus with hypoglycemia without coma; E11.69 Type 2 diabetes mellitus with other specified complication; M79.89 Other specified soft tissue disorders; F17.200 Nicotine dependence, unspecified, uncomplicated; Z79.899 Other long term (current) drug therapy; Z68.1 Body mass index [BMI] 19.9 or less, adult; Y83.8 Other surgical procedures as the cause of abnormal reaction of the patient, or of later complication, without mention of misadventure at the time of the procedure; Y92.234 Operating room of hospital as the place of occurrence of the external cause
CPT/HCPCS: 36416; 82948; 97597

== ENCOUNTER 2020-09-14 10:32 | Outpatient (CLI) | payer MEDICAID ==
[2020-09-14] MEDS ORDERED: LIDOcaine 2% 5ml jelly ONE (10:52)
== END 2020-09-14 12:30 | disposition home or self-care (01) ==
LOC: WOUND CARE 10:32
PROVIDERS: ATTEND Nurse Practitioner
DX: T81.31XD Disruption of external operation (surgical) wound, not elsewhere classified, subsequent encounter (principal); E11.621 Type 2 diabetes mellitus with foot ulcer; L97.528 Non-pressure chronic ulcer of other part of left foot with other specified severity; I10 Essential (primary) hypertension; E11.65 Type 2 diabetes mellitus with hyperglycemia; E78.1 Pure hyperglyceridemia; E87.6 Hypokalemia; E44.1 Mild protein-calorie malnutrition; E11.40 Type 2 diabetes mellitus with diabetic neuropathy, unspecified; E11.649 Type 2 diabetes mellitus with hypoglycemia without coma; E11.69 Type 2 diabetes mellitus with other specified complication; M79.89 Other specified soft tissue disorders; F17.200 Nicotine dependence, unspecified, uncomplicated; Z79.899 Other long term (current) drug therapy; Z68.1 Body mass index [BMI] 19.9 or less, adult; Y83.8 Other surgical procedures as the cause of abnormal reaction of the patient, or of later complication, without mention of misadventure at the time of the procedure
CPT/HCPCS: 36416; 82948; 97597; 97598

== ENCOUNTER 2020-09-21 12:00 | Outpatient (CLI) | payer MEDICAID ==
[2020-09-21] MEDS ORDERED: LIDOcaine 2% 5ml jelly ONE (12:29)
[2020-09-21] MEDS ORDERED: LIDOcaine 1%/PF 5ML 10 MG/ML VIAL ONE (12:52)
== END 2020-09-21 23:59 | disposition home or self-care (01) ==
LOC: WOUND CARE 12:00
PROVIDERS: ATTEND Nurse Practitioner
DX: T81.89XD Other complications of procedures, not elsewhere classified, subsequent encounter (principal); T87.89 Other complications of amputation stump; E11.621 Type 2 diabetes mellitus with foot ulcer; L97.422 Non-pressure chronic ulcer of left heel and midfoot with fat layer exposed; L97.522 Non-pressure chronic ulcer of other part of left foot with fat layer exposed; I10 Essential (primary) hypertension; E11.65 Type 2 diabetes mellitus with hyperglycemia; E78.1 Pure hyperglyceridemia; E87.6 Hypokalemia; E44.1 Mild protein-calorie malnutrition; E11.40 Type 2 diabetes mellitus with diabetic neuropathy, unspecified; E11.649 Type 2 diabetes mellitus with hypoglycemia without coma; E11.69 Type 2 diabetes mellitus with other specified complication; M79.89 Other specified soft tissue disorders; F17.200 Nicotine dependence, unspecified, uncomplicated; Z79.899 Other long term (current) drug therapy; Z68.1 Body mass index [BMI] 19.9 or less, adult; Y83.8 Other surgical procedures as the cause of abnormal reaction of the patient, or of later complication, without mention of misadventure at the time of the procedure; Y83.5 Amputation of limb(s) as the cause of abnormal reaction of the patient, or of later complication, without mention of misadventure at the time of the procedure
CPT/HCPCS: 36416; 82948; 97597

== ENCOUNTER → 2020-09-30 | Outpatient (CLI) | payer MEDICAID ==
[~2020-09-30] MED LIST changes: +LIDOcaine 2% 5ml jelly ONE
== END | disposition home or self-care (01) ==
LOC: EDSTATUS 11:40 → WOUND CARE 11:54
PROVIDERS: ATTEND Nurse Practitioner
DX: T81.89XD Other complications of procedures, not elsewhere classified, subsequent encounter (principal); T87.89 Other complications of amputation stump; E11.621 Type 2 diabetes mellitus with foot ulcer; L97.523 Non-pressure chronic ulcer of other part of left foot with necrosis of muscle; L97.422 Non-pressure chronic ulcer of left heel and midfoot with fat layer exposed; I10 Essential (primary) hypertension; E11.65 Type 2 diabetes mellitus with hyperglycemia; E78.1 Pure hyperglyceridemia; E87.6 Hypokalemia; E87.1 Hypo-osmolality and hyponatremia; E44.1 Mild protein-calorie malnutrition; E11.40 Type 2 diabetes mellitus with diabetic neuropathy, unspecified; E11.649 Type 2 diabetes mellitus with hypoglycemia without coma; E11.69 Type 2 diabetes mellitus with other specified complication; M79.89 Other specified soft tissue disorders; F17.200 Nicotine dependence, unspecified, uncomplicated; Z79.899 Other long term (current) drug therapy; Z68.1 Body mass index [BMI] 19.9 or less, adult; Y83.8 Other surgical procedures as the cause of abnormal reaction of the patient, or of later complication, without mention of misadventure at the time of the procedure; Y83.5 Amputation of limb(s) as the cause of abnormal reaction of the patient, or of later complication, without mention of misadventure at the time of the procedure
CPT/HCPCS: 11043; 36416; 82948; 97597

== ENCOUNTER → 2020-10-07 | Outpatient (CLI) | payer MEDICAID | END | disposition home or self-care (01) | LOC: EDSTATUS 11:40 → WOUND CARE 12:07 | PROVIDERS: ATTEND Nurse Practitioner | DX: T81.89XD Other complications of procedures, not elsewhere classified, subsequent encounter (principal); T87.89 Other complications of amputation stump; E11.621 Type 2 diabetes mellitus with foot ulcer; L97.523 Non-pressure chronic ulcer of other part of left foot with necrosis of muscle; L97.422 Non-pressure chronic ulcer of left heel and midfoot with fat layer exposed; I10 Essential (primary) hypertension; E11.65 Type 2 diabetes mellitus with hyperglycemia; E78.1 Pure hyperglyceridemia; E87.6 Hypokalemia; E87.1 Hypo-osmolality and hyponatremia; E44.1 Mild protein-calorie malnutrition; E11.40 Type 2 diabetes mellitus with diabetic neuropathy, unspecified; E11.649 Type 2 diabetes mellitus with hypoglycemia without coma; E11.69 Type 2 diabetes mellitus with other specified complication; M79.89 Other specified soft tissue disorders; F17.200 Nicotine dependence, unspecified, uncomplicated; Z79.899 Other long term (current) drug therapy; Z68.1 Body mass index [BMI] 19.9 or less, adult; Y83.8 Other surgical procedures as the cause of abnormal reaction of the patient, or of later complication, without mention of misadventure at the time of the procedure; Y83.5 Amputation of limb(s) as the cause of abnormal reaction of the patient, or of later complication, without mention of misadventure at the time of the procedure | CPT/HCPCS: 11042; 36416; 82948; 87070; 87075; 87077; 87186; 97597 ==

== ENCOUNTER 2020-10-11 11:34 | Outpatient (CLI) | payer MEDICAID ==
[~2020-10-11 11:34] MED LIST changes: -LIDOcaine 2% 5ml jelly ONE
[2020-10-11] MEDS ORDERED: LIDOcaine 2% 5ml jelly ONE (12:26)
[2020-10-11] MEDS ORDERED: dextrose ORAL solution 15 GM/59 ML bottle ONE (12:40)
== END 2020-10-11 23:59 | disposition home or self-care (01) ==
LOC: WOUND CARE 11:34
PROVIDERS: ATTEND Nurse Practitioner
DX: T81.89XD Other complications of procedures, not elsewhere classified, subsequent encounter (principal); T87.89 Other complications of amputation stump; E11.621 Type 2 diabetes mellitus with foot ulcer; L97.522 Non-pressure chronic ulcer of other part of left foot with fat layer exposed; L97.422 Non-pressure chronic ulcer of left heel and midfoot with fat layer exposed; E11.65 Type 2 diabetes mellitus with hyperglycemia; E11.40 Type 2 diabetes mellitus with diabetic neuropathy, unspecified; E11.649 Type 2 diabetes mellitus with hypoglycemia without coma; E11.69 Type 2 diabetes mellitus with other specified complication; I10 Essential (primary) hypertension; E78.1 Pure hyperglyceridemia; E87.6 Hypokalemia; E87.1 Hypo-osmolality and hyponatremia; E44.1 Mild protein-calorie malnutrition; M79.89 Other specified soft tissue disorders; F17.200 Nicotine dependence, unspecified, uncomplicated; Z79.899 Other long term (current) drug therapy; Z68.1 Body mass index [BMI] 19.9 or less, adult; Y83.8 Other surgical procedures as the cause of abnormal reaction of the patient, or of later complication, without mention of misadventure at the time of the procedure; Y83.5 Amputation of limb(s) as the cause of abnormal reaction of the patient, or of later complication, without mention of misadventure at the time of the procedure
CPT/HCPCS: 11042; 36416; 82948; 97597

== ENCOUNTER 2020-10-18 12:03 | Outpatient (CLI) | payer MEDICAID ==
[2020-10-18] MEDS ORDERED: LIDOcaine 2% 5ml jelly ONE (13:12)
== END 2020-10-18 23:59 | disposition home or self-care (01) ==
LOC: WOUND CARE 12:03
PROVIDERS: ATTEND Nurse Practitioner
DX: T81.89XD Other complications of procedures, not elsewhere classified, subsequent encounter (principal); T87.89 Other complications of amputation stump; E11.621 Type 2 diabetes mellitus with foot ulcer; L97.522 Non-pressure chronic ulcer of other part of left foot with fat layer exposed; L97.422 Non-pressure chronic ulcer of left heel and midfoot with fat layer exposed; I10 Essential (primary) hypertension; E11.65 Type 2 diabetes mellitus with hyperglycemia; E78.1 Pure hyperglyceridemia; E87.6 Hypokalemia; E87.1 Hypo-osmolality and hyponatremia; E44.1 Mild protein-calorie malnutrition; E11.40 Type 2 diabetes mellitus with diabetic neuropathy, unspecified; E11.649 Type 2 diabetes mellitus with hypoglycemia without coma; E11.69 Type 2 diabetes mellitus with other specified complication; F17.200 Nicotine dependence, unspecified, uncomplicated; Z79.899 Other long term (current) drug therapy; Z68.1 Body mass index [BMI] 19.9 or less, adult; Y83.8 Other surgical procedures as the cause of abnormal reaction of the patient, or of later complication, without mention of misadventure at the time of the procedure; Y83.5 Amputation of limb(s) as the cause of abnormal reaction of the patient, or of later complication, without mention of misadventure at the time of the procedure
CPT/HCPCS: 11042; 36416; 82948; 97597

== ENCOUNTER 2021-04-28 04:55 | Inpatient (IN) | payer MEDICAID ==
[~2021-04-28] VITALS: Ht 188 cm; Wt 71.3 kg
[2021-04-28] VITALS (10 sets, daily range): BP systolic 136–188; BP diastolic 102–127
[~2021-04-28 04:55] MED LIST changes: +LISI40TA13 PO; -LISI40TA4 PO
[2021-04-28 05:17] LABS: BASOPHILS # (AUTO) 0.1 X10'3 (0-0.2); BASOPHILS % (AUTO) 1.3 % (0-1); EOSINOPHILS # (AUTO) 0.1 X10'3 (0-0.9); EOSINOPHILS % (AUTO) 1.6 % (0-6); HEMATOCRIT 32.5 % (42.0-52.0); HEMOGLOBIN 11.1 g/dl (14.0-17.9); LYMPHOCYTES # (AUTO) 1.6 X10'3 (1.1-4.8); MEAN CORPUSCULAR VOLUME 102.8 FL (78-98); MEAN PLATELET VOLUME 6.4 FL (7.4-10.4); MONOCYTES # (AUTO) 0.4 X10'3 (0-0.9); MONOCYTES % (AUTO) 7.4 % (2-12); NEUTROPHILS # (AUTO) 3.6 X10'3 (1.8-7.7); NEUTROPHILS % (AUTO) 61.7 % (42-75); PLATELET COUNT 144 X10'3 (140-440); RED BLOOD COUNT 3.16 X10'6 (4.70-6.10); RED CELL DISTRIBUTION WIDTH 14.5 % (11.5-14.5); WHITE BLOOD COUNT 5.8 X10'3 (4.5-11.0)
[2021-04-28 05:39] LABS: ALANINE AMINOTRANSFERASE 28 U/L (12-78); ALBUMIN 3.7 G/DL (3.4-5.0); ALBUMIN/GLOBULIN RATIO 0.9 (1.1-1.5); ALKALINE PHOSPHATASE 98 IU/L (46-116); ANION GAP 14 (8-16); ASPARTATE AMINO TRANSFERASE 49 U/L (10-37); BILIRUBIN,TOTAL 0.5 MG/DL (0.1-1.0); BLOOD UREA NITROGEN 6 MG/DL (7-18); CALCIUM 8.1 MG/DL (8.5-10.1); CHLORIDE 103 MMOL/L (99-107); GLUCOSE 115 MG/DL (70-104); SODIUM 141 MMOL/L (135-145); TOTAL CARBON DIOXIDE 23.6 MMOL/L (24-32); TOTAL PROTEIN 7.9 G/DL (6.4-8.2); eGFR > 90 ML/MIN
[2021-04-28 05:41] LABS: POTASSIUM 2.9 MMOL/L (3.5-5.1)
[2021-04-28] MEDS ORDERED: potassium Cl 20 mEq SR tablet PO ONE (06:25)
[2021-04-28] MEDS: potassium Cl 10 mEq/100mL bag IV SCH ×2 (06:48→07:25)
[2021-04-28] MEDS: magnesium 2GM in 50ml NS 50 ML IV SCH ×2 (06:49→08:25)
[2021-04-28] MEDS ORDERED: pantoprazole 40 MG vial IV ONE (07:00)
[2021-04-28] MEDS ORDERED: famotidine/PF 10 mg/ml inj IV ONE (07:00)
[2021-04-28] MEDS ORDERED: haloperidol lactate 5mg/ml inj IM PRN (07:10)
[2021-04-28] MEDS ORDERED: magnesium hydroxide 30ml (MOM) UD suspension PO PRN (07:10)
[2021-04-28] MEDS ORDERED: acetaminophen 325mg tablet PO PRN (07:10)
[2021-04-28] MEDS: normal saline 1000ml 1,000 ML IV SCH ×2 (07:10→16:25)
[2021-04-28] MEDS ORDERED: dextrose 50%-water 50ml dispensing syringe IV PRN (07:10)
[2021-04-28] MEDS ORDERED: mag hydrox/Alum hydrox/simeth 30ml oral suspension PO PRN (07:10)
[2021-04-28] MEDS ORDERED: haloperidol 5mg tablet PO PRN (07:10)
[2021-04-28] MEDS ORDERED: ondansetron/PF 4mg/2ml inj IV PRN (07:10)
[2021-04-28] MEDS ORDERED: thiamine 100mg/ml 2ml inj. IV ONE (07:10)
[2021-04-28] MEDS ORDERED: normal saline 1000ml 1,000 ML IV ONE (07:15)
[2021-04-28] MEDS ORDERED: normal saline 1000ML IV soln IVB ONE (07:15)
[2021-04-28] MEDS: folic acid 1mg tablet PO SCH (07:32)
[2021-04-28 08:22] LABS: PARTIAL THROMBOPLASTIN TIME 27 SECONDS (22-32)
[2021-04-28 08:50] LABS: OCCULT BLOOD STOOL POSITIVE (Neg)
--- NOTE | 2021-04-28 08:50 | NUR ---
Patient in room PCU 3011. I have received report from BENIGNO CHAMBERLAIN and had the opportunity to ask questions and assume patient care.
[2021-04-28] MEDS ORDERED: ESCI20TA39 PO ×2 (08:52→11:50)
[2021-04-28] MEDS ORDERED: BISA5TAB10 PO (08:52)
[2021-04-28] MEDS ORDERED: FAMO-49 PO (08:52)
[2021-04-28] MEDS ORDERED: FERR325T7 PO (08:52)
[2021-04-28] MEDS ORDERED: METF-438 PO (08:52)
[2021-04-28] MEDS ORDERED: DOXY100T2 PO (08:52)
[2021-04-28] MEDS ORDERED: LOVA40TA2 PO ×2 (08:52→11:50)
[2021-04-28] MEDS ORDERED: PANT40TA54 PO (08:52)
[2021-04-28] MEDS ORDERED: potassium Cl 10 mEq/100mL bag IV SCH (11:40)
[2021-04-28] MEDS: pantoprazole 40MG/NS 100ML BAG 100 ML IV SCH ×3 (11:41→20:12)
[2021-04-28] MEDS: thiamine 100mg tablet PO SCH (11:42)
[2021-04-28] MEDS ORDERED: LISI20TA28 PO (11:48)
[2021-04-28] MEDS ORDERED: INSU100I39 SQ (11:48)
[2021-04-28] MEDS ORDERED: fentaNYL/PF 50MCG/1 ML 2ML syringe ONE (13:02)
[2021-04-28] MEDS ORDERED: LIDOcaine Viscous 15ml cup ONE (13:03)
[2021-04-28] MEDS ORDERED: MIDAZolam 1 MG/ML 5ML VIAL ONE (13:03)
[2021-04-28] MEDS ORDERED: magnesium 4gm in 100ml NS 100 ML IV PRN (17:55)
[2021-04-28] MEDS ORDERED: magnesium Cl slow-release 64mg tablet PO PRN (17:55)
[2021-04-28] MEDS ORDERED: potassium Cl 40MEQ/1/2NS 520ml 520 ML IV PRN (17:55)
[2021-04-28] MEDS ORDERED: potassium Cl 20 mEq SR tablet PO PRN (17:55)
--- NOTE | 2021-04-28 18:00 | NUR ---
Patient in room PCU 3011. I have received report from ELIS and had the opportunity to ask questions and assume patient care.
[2021-04-28 18:09] LABS: MAGNESIUM 2.3 MG/DL (1.5-2.4); POTASSIUM 4.3 MMOL/L (3.5-5.1)
[2021-04-28] MEDS ORDERED: PEG 3350/Na sulf,bicarb,Cl/KCl oral sol 4 liter bottle PO ONE (18:10)
[2021-04-28] MEDS: metFORMIN 500mg tablet PO SCH (19:29)
[2021-04-28] MEDS: K and/or MAG REPLACEMENT MC SCH (20:00)
[2021-04-28] MEDS: LORazepam 2 mg/ml vial IV PRN (22:56)
[2021-04-29] VITALS (14 sets, daily range): BP systolic 90–174; BP diastolic 57–126
[2021-04-29] MEDS: pantoprazole 40MG/NS 100ML BAG 100 ML IV SCH ×5 (02:00→21:00)
--- NOTE | 2021-04-29 02:37 | NUR ---
Messaged Dr Gustavo taylor BP 174/126, pt on ETOH protocol, stated to continue with protocol and give ativan.
[2021-04-29] MEDS: LORazepam 2 mg/ml vial IV PRN (02:46)
[2021-04-29] MEDS: normal saline 1000ml 1,000 ML IV SCH ×3 (03:10→23:40)
--- NOTE | 2021-04-29 06:00 | NUR ---
Patient in room PCU 3011. I have received report from Radha CHAMBERLAIN and had the opportunity to ask questions and assume patient care.
--- NOTE | 2021-04-29 06:22 | NUR ---
Problems reprioritized. Patient report given, questions answered & plan of care reviewed with Kelsie-CINTIA.
[2021-04-29 06:51] LABS: BASOPHILS % (AUTO) 0.7 % (0-1); EOSINOPHILS # (AUTO) 0.1 X10'3 (0-0.9); EOSINOPHILS % (AUTO) 1.2 % (0-6); HEMATOCRIT 34.8 % (42.0-52.0); LYMPHOCYTES # (AUTO) 0.9 X10'3 (1.1-4.8); LYMPHOCYTES % (AUTO) 19.7 % (21-51); MEAN CORPUSCULAR HEMOGLOBIN 35.1 PG (27.0-31.0); MEAN CORPUSCULAR HGB CONC 34.4 g/dL (33.0-36.5); MEAN CORPUSCULAR VOLUME 101.9 FL (78-98); MEAN PLATELET VOLUME 7.3 FL (7.4-10.4); MONOCYTES # (AUTO) 0.3 X10'3 (0-0.9); MONOCYTES % (AUTO) 6.1 % (2-12); NEUTROPHILS # (AUTO) 3.3 X10'3 (1.8-7.7); NEUTROPHILS % (AUTO) 72.3 % (42-75); PLATELET COUNT 119 X10'3 (140-440); RED BLOOD COUNT 3.41 X10'6 (4.70-6.10); RED CELL DISTRIBUTION WIDTH 14.1 % (11.5-14.5); WHITE BLOOD COUNT 4.6 X10'3 (4.5-11.0)
[2021-04-29] MEDS: insulin Lispro (HumaLOG) vial - multi-dose SQ SCH ×2 (07:00→17:00)
[2021-04-29] MEDS: folic acid 1mg tablet PO SCH (07:49)
[2021-04-29] MEDS: metFORMIN 500mg tablet PO SCH ×2 (07:49→21:17)
[2021-04-29] MEDS: thiamine 100mg tablet PO SCH (07:49)
[2021-04-29] MEDS: lisinopril 20mg tablet PO SCH (07:50)
[2021-04-29] MEDS: atorvastatin 10mg tablet PO SCH (07:50)
[2021-04-29] MEDS: ESCITALOPRAM OXALATE 5 MG TABLET PO SCH (07:50)
[2021-04-29 08:33] LABS: ALBUMIN 3.5 G/DL (3.4-5.0); ANION GAP 8 (8-16); BLOOD UREA NITROGEN 6 MG/DL (7-18); BUN/CREATININE RATIO 7.5 (5.4-32.0); CALCIUM 8.8 MG/DL (8.5-10.1); CHLORIDE 100 MMOL/L (99-107); GLUCOSE 162 MG/DL (70-104); MAGNESIUM 2.1 MG/DL (1.5-2.4); POTASSIUM 3.4 MMOL/L (3.5-5.1); SODIUM 136 MMOL/L (135-145); TOTAL CARBON DIOXIDE 28.5 MMOL/L (24-32); eGFR > 90 ML/MIN
[2021-04-29] MEDS ORDERED: hydrALAZINE 20mg/ml inj. IV ONE (08:35)
[2021-04-29] MEDS: K and/or MAG REPLACEMENT MC SCH ×2 (09:00→20:00)
[2021-04-29] MEDS: potassium Cl 20 mEq SR tablet PO PRN ×2 (09:45→21:17)
[2021-04-29] MEDS: amLODIPine 5mg tablet PO SCH (09:45)
--- NOTE | 2021-04-29 14:35 | NUR ---
Pt went down to GI lab .
[2021-04-29] MEDS ORDERED: MIDAZolam 1 MG/ML 5ML VIAL ONE (14:53)
[2021-04-29] MEDS ORDERED: fentaNYL/PF 50MCG/1 ML 2ML syringe ONE (14:53)
--- NOTE | 2021-04-29 16:15 | NUR ---
Patient in room PCU 3011. I have received report from CINTIA Gonzalez and had the opportunity to ask questions and assume patient care.
--- NOTE | 2021-04-29 16:25 | NUR ---
Pt back on floor from GI lab. Received bedside report from GI RN.
--- NOTE | 2021-04-29 18:00 | NUR ---
Problems reprioritized. Patient report given, questions answered & plan of care reviewed with Marifer CHAMBERLAIN.
[2021-04-30] MEDS: pantoprazole 40MG/NS 100ML BAG 100 ML IV SCH ×3 (01:03→10:10)
[2021-04-30 02:00] VITALS: BP 98/62
[2021-04-30 06:00] VITALS: BP 128/80
--- NOTE | 2021-04-30 06:00 | NUR ---
Patient in room PCU 3011. I have received report from Marifer CHAMBERLAIN and had the opportunity to ask questions and assume patient care.
[2021-04-30 06:06] LABS: BASOPHILS % (AUTO) 0.6 % (0-1); EOSINOPHILS # (AUTO) 0.1 X10'3 (0-0.9); EOSINOPHILS % (AUTO) 1.7 % (0-6); HEMATOCRIT 31.9 % (42.0-52.0); HEMOGLOBIN 10.9 g/dl (14.0-17.9); LYMPHOCYTES % (AUTO) 20.7 % (21-51); MEAN CORPUSCULAR HEMOGLOBIN 35.2 PG (27.0-31.0); MEAN CORPUSCULAR VOLUME 103.5 FL (78-98); MEAN PLATELET VOLUME 7.4 FL (7.4-10.4); MONOCYTES # (AUTO) 0.3 X10'3 (0-0.9); MONOCYTES % (AUTO) 6.2 % (2-12); NEUTROPHILS # (AUTO) 3.4 X10'3 (1.8-7.7); NEUTROPHILS % (AUTO) 70.8 % (42-75); PLATELET COUNT 103 X10'3 (140-440); RED BLOOD COUNT 3.08 X10'6 (4.70-6.10); RED CELL DISTRIBUTION WIDTH 14.2 % (11.5-14.5); WHITE BLOOD COUNT 4.8 X10'3 (4.5-11.0)
--- NOTE | 2021-04-30 06:10 | NUR ---
Problems reprioritized. Patient report given, questions answered & plan of care reviewed with CINTIA Edwards.
[2021-04-30 06:12] LABS: ALBUMIN 3.3 G/DL (3.4-5.0); ANION GAP 9 (8-16); BLOOD UREA NITROGEN 9 MG/DL (7-18); BUN/CREATININE RATIO 8.7 (5.4-32.0); CALCIUM 8.8 MG/DL (8.5-10.1); CHLORIDE 103 MMOL/L (99-107); CREATININE 1.03 MG/DL (0.60-1.10); GLUCOSE 187 MG/DL (70-104); MAGNESIUM 1.9 MG/DL (1.5-2.4); POTASSIUM 4.2 MMOL/L (3.5-5.1); SODIUM 136 MMOL/L (135-145); eGFR > 90 ML/MIN
[2021-04-30] MEDS: insulin Lispro (HumaLOG) vial - multi-dose SQ SCH (07:00)
[2021-04-30] MEDS ORDERED: LORazepam 2 mg/ml vial IV PRN (07:10)
[2021-04-30] MEDS ORDERED: LORazepam 1 MG tablet PO PRN (07:10)
[2021-04-30] MEDS: atorvastatin 10mg tablet PO SCH (07:11)
[2021-04-30] MEDS: ESCITALOPRAM OXALATE 5 MG TABLET PO SCH (07:12)
[2021-04-30] MEDS: folic acid 1mg tablet PO SCH (07:12)
[2021-04-30] MEDS: thiamine 100mg tablet PO SCH (07:12)
[2021-04-30] MEDS: metFORMIN 500mg tablet PO SCH (07:12)
[2021-04-30] MEDS: lisinopril 20mg tablet PO SCH (07:13)
[2021-04-30] MEDS: amLODIPine 5mg tablet PO SCH (07:13)
[2021-04-30 07:17] VITALS: BP 129/81
[2021-04-30] MEDS: K and/or MAG REPLACEMENT MC SCH (08:00)
[2021-04-30] MEDS: normal saline 1000ml 1,000 ML IV SCH (09:10)
--- NOTE | 2021-04-30 09:10 | NUR ---
Paged Dr Morrell: PAGER ID: [phone] MESSAGE: [phone] John - Pt has met criteria for insulin with blood glucose >200. I wanted to verify - do you want him receiving Humalog in addition to his metformin? Thanks! Mabel CHAMBERLAIN [phone]
--- NOTE | 2021-04-30 10:03 | NUR ---
Plan of care discussed with Dr Morrell. Hold insulin today per MD. Pt to be discharged today.
[2021-04-30 11:00] VITALS: BP 125/80
[2021-04-30] MEDS ORDERED: PANT-47 PO (12:32)
[2021-04-30 13:45] VITALS: BP 99/62
--- NOTE | 2021-04-30 13:49 | NUR ---
Reviewed pt discharge instructions and education with patient. Answered all questions; pt verbalized understanding. VSS. Removed both IV's and tele box. Pt's prescriptions electronically submitted. Pt states no meds in pharmacy or valuables in security. Assisted pt in getting dressed. Called YEMI Veliz to notify that pt was ready to go so that she could call him a ride.
[2021-05-02] MEDS ORDERED: LORazepam 1 MG tablet PO PRN (07:10)
[2021-05-02] MEDS ORDERED: LORazepam 2 mg/ml vial IV PRN (07:10)
== END 2021-04-30 14:50 | disposition home or self-care (01) | DRG 241 ==
LOC: ER 04:56 → ED HOLD 07:10 → EDBEDREQ 08:00 → PCU 3S 09:13
PROVIDERS: ADMIT Family Medicine; ATTEND Family Medicine
PROC: 0DB68ZX Excision of Stomach, Via Natural or Artificial Opening Endoscopic, Diagnostic (ICD-10-PCS; principal; 2021-04-28)
PROC: 0DBH8ZZ Excision of Cecum, Via Natural or Artificial Opening Endoscopic (ICD-10-PCS; 2021-04-29)
PROC: 0DBL8ZZ Excision of Transverse Colon, Via Natural or Artificial Opening Endoscopic (ICD-10-PCS; 2021-04-29)
PROC: 0DBM8ZZ Excision of Descending Colon, Via Natural or Artificial Opening Endoscopic (ICD-10-PCS; 2021-04-29)
DX: K29.21 Alcoholic gastritis with bleeding (principal); K86.0 Alcohol-induced chronic pancreatitis; D64.9 Anemia, unspecified; E11.9 Type 2 diabetes mellitus without complications; E87.6 Hypokalemia; F10.20 Alcohol dependence, uncomplicated; F17.210 Nicotine dependence, cigarettes, uncomplicated; I10 Essential (primary) hypertension; K52.9 Noninfective gastroenteritis and colitis, unspecified; K63.5 Polyp of colon; Z59.0 Homelessness
CPT/HCPCS: 36415; 43239; 45385; 71045; 80048; 80053; 82272; 82948; 83735; 83880; 84132; 84484; 85025; 85610; 85730; 86885; 86900; 86901; 93005; 96365; 99152; 99153; 99285; A4620; C1773; C9113; G0378; J1815; J2060; J2250; J3010; J3411; J3475; J3480; J3490; J7030; J7040

== ENCOUNTER 2021-05-08 18:26 | Emergency (ER) | payer MEDICAID ==
[~2021-05-08] VITALS: Ht 185.4 cm; Wt 60.1 kg
[~2021-05-08 18:26] MED LIST changes: +ESCI20TA39 PO; -GLYB5TAB7 PO; +INSU100I39 SQ; -LEVO500T89 PO; +LISI20TA28 PO; -LISI40TA13 PO; +LOVA40TA2 PO; +METF-438 PO; -METF500T PO; +PANT-47 PO
[2021-05-08] MEDS ORDERED: mag hydrox/Alum hydrox/simeth 30ml oral suspension PO ONE (21:15)
[2021-05-08] MEDS ORDERED: normal saline 1000ML IV soln IVB ONE (21:15)
[2021-05-08] MEDS ORDERED: proCHLORperazine 10 MG/2 ml inj IV ONE (21:15)
[2021-05-08] MEDS ORDERED: pantoprazole 40mg Tablet.DR PO ONE (21:15)
[2021-05-08 21:57] LABS: ALANINE AMINOTRANSFERASE 35 U/L (12-78); ALBUMIN/GLOBULIN RATIO 0.9 (1.1-1.5); ALKALINE PHOSPHATASE 74 IU/L (46-116); ANION GAP 11 (8-16); ASPARTATE AMINO TRANSFERASE 33 U/L (10-37); BILIRUBIN,TOTAL 0.4 MG/DL (0.1-1.0); BLOOD UREA NITROGEN 8 MG/DL (7-18); BUN/CREATININE RATIO 8.1 (5.4-32.0); CALCIUM 8.7 MG/DL (8.5-10.1); CHLORIDE 95 MMOL/L (99-107); CREATININE 0.99 MG/DL (0.60-1.10); GLUCOSE 125 MG/DL (70-104); LIPASE < 50 U/L (73-393); POTASSIUM 3.9 MMOL/L (3.5-5.1); SODIUM 133 MMOL/L (135-145); TOTAL CARBON DIOXIDE 27.5 MMOL/L (24-32); TOTAL PROTEIN 8.4 G/DL (6.4-8.2); eGFR > 90 ML/MIN
[2021-05-08 22:02] LABS: BASOPHILS # (AUTO) 0.1 X10'3 (0-0.2); BASOPHILS % (AUTO) 2.4 % (0-1); EOSINOPHILS # (AUTO) 0.1 X10'3 (0-0.9); EOSINOPHILS % (AUTO) 2.7 % (0-6); HEMATOCRIT 36.4 % (42.0-52.0); HEMOGLOBIN 12.2 g/dl (14.0-17.9); LYMPHOCYTES # (AUTO) 1.8 X10'3 (1.1-4.8); LYMPHOCYTES % (AUTO) 38.8 % (21-51); MEAN CORPUSCULAR HEMOGLOBIN 34.1 PG (27.0-31.0); MEAN CORPUSCULAR HGB CONC 33.5 g/dL (33.0-36.5); MEAN CORPUSCULAR VOLUME 101.9 FL (78-98); MEAN PLATELET VOLUME 6.4 FL (7.4-10.4); MONOCYTES # (AUTO) 0.4 X10'3 (0-0.9); MONOCYTES % (AUTO) 8.7 % (2-12); NEUTROPHILS # (AUTO) 2.2 X10'3 (1.8-7.7); NEUTROPHILS % (AUTO) 47.4 % (42-75); PLATELET COUNT 281 X10'3 (140-440); RED BLOOD COUNT 3.58 X10'6 (4.70-6.10); WHITE BLOOD COUNT 4.6 X10'3 (4.5-11.0)
[2021-05-08 22:34] VITALS: BP 147/95
[2021-05-08] MEDS ORDERED: ONDA4TAB6 PO (22:39)
[2021-05-08 22:50] LABS: ETHANOL 0.196 GM/DL (0.0-0.010)
== END 2021-05-08 22:51 | disposition home or self-care (01) ==
LOC: ER 18:27
DX: R11.2 Nausea with vomiting, unspecified (principal); F10.129 Alcohol abuse with intoxication, unspecified; R19.7 Diarrhea, unspecified; R10.84 Generalized abdominal pain; I10 Essential (primary) hypertension; E11.9 Type 2 diabetes mellitus without complications; Z72.89 Other problems related to lifestyle; Z98.890 Other specified postprocedural states; Z59.0 Homelessness; Z79.4 Long term (current) use of insulin; Z79.899 Other long term (current) drug therapy; Y90.9 Presence of alcohol in blood, level not specified
CPT/HCPCS: 36415; 80053; 80320; 83690; 85025; 96361; 96374; 99284; J0780; J7030

== ENCOUNTER 2021-05-13 10:16 | Emergency (ER) | payer MEDICAID ==
[~2021-05-13] VITALS: Ht 188 cm; Wt 59.0 kg
[~2021-05-13 10:16] MED LIST changes: +ONDA4TAB6 PO
[2021-05-13] MEDS ORDERED: ondansetron/PF 4mg/2ml inj IV ONE (11:00)
[2021-05-13] MEDS ORDERED: normal saline 1000ml 1,000 ML IV ONE (11:00)
[2021-05-13 11:19] LABS: BASOPHILS # (AUTO) 0.1 X10'3 (0-0.2); BASOPHILS % (AUTO) 0.9 % (0-1); EOSINOPHILS % (AUTO) 0.1 % (0-6); HEMATOCRIT 35.1 % (42.0-52.0); HEMOGLOBIN 11.9 g/dl (14.0-17.9); LYMPHOCYTES # (AUTO) 0.5 X10'3 (1.1-4.8); LYMPHOCYTES % (AUTO) 7.2 % (21-51); MEAN CORPUSCULAR HEMOGLOBIN 34.5 PG (27.0-31.0); MEAN CORPUSCULAR HGB CONC 33.8 g/dL (33.0-36.5); MEAN CORPUSCULAR VOLUME 101.9 FL (78-98); MEAN PLATELET VOLUME 6.4 FL (7.4-10.4); MONOCYTES # (AUTO) 0.4 X10'3 (0-0.9); MONOCYTES % (AUTO) 5.6 % (2-12); NEUTROPHILS # (AUTO) 6.4 X10'3 (1.8-7.7); NEUTROPHILS % (AUTO) 86.2 % (42-75); PLATELET COUNT 245 X10'3 (140-440); RED BLOOD COUNT 3.44 X10'6 (4.70-6.10); RED CELL DISTRIBUTION WIDTH 13.7 % (11.5-14.5); WHITE BLOOD COUNT 7.4 X10'3 (4.5-11.0)
[2021-05-13 11:29] LABS: ALANINE AMINOTRANSFERASE 47 U/L (12-78); ALKALINE PHOSPHATASE 83 IU/L (46-116); ANION GAP 16 (8-16); ASPARTATE AMINO TRANSFERASE 38 U/L (10-37); BILIRUBIN,TOTAL 0.6 MG/DL (0.1-1.0); BLOOD UREA NITROGEN 8 MG/DL (7-18); BUN/CREATININE RATIO 8.1 (5.4-32.0); CALCIUM 8.9 MG/DL (8.5-10.1); CHLORIDE 94 MMOL/L (99-107); CREATININE 0.99 MG/DL (0.60-1.10); GLUCOSE 108 MG/DL (70-104); POTASSIUM 3.4 MMOL/L (3.5-5.1); SODIUM 134 MMOL/L (135-145); TOTAL CARBON DIOXIDE 24.3 MMOL/L (24-32); TOTAL PROTEIN 8.1 G/DL (6.4-8.2); eGFR > 90 ML/MIN
--- NOTE | 2021-05-13 12:37 | NUR ---
ASLEEP ON GURNEY. NO FURTHER EMESIS NOTED. IV PATENT AND INFUSING WELL.
[2021-05-13 12:43] LABS: OCCULT BLOOD STOOL NEGATIVE (Neg)
--- NOTE | 2021-05-13 13:14 | NUR ---
given a pitcher of cold water. Addendum: 05/13/21 at 1314 by KAIT wrong patient.
--- NOTE | 2021-05-13 14:03 | NUR ---
relieving RN for lunch, pt is resting quietly on gurney, using urinal
[2021-05-13] MEDS ORDERED: niCARDipine-NS 40mg/200ml IVPB 200 ML IV SCH (16:00)
--- NOTE | 2021-05-13 16:25 | NUR ---
TELENEUROLOGIST IS INTERVIEWING PATIENT IN THE ROOM. PATIENT IS ACCEPTED TO [facility] AND WILL BE TRANSFERRED FOR HIGHER LEVEL OF CARE.
--- NOTE | 2021-05-13 17:14 | NUR ---
TELEPHONE REPORT TO [facility], CINTIA OLIVER. EMS TRANSPORT IS HERE TO WON PATIENT TO [facility]. COVID SWAB COLLECTED AND SENT TO LAB FOR ANALYSIS. LICO LAKHANI STOPPED PER DR. CARR ORDERS. DEPARTED PER BO IN STABLE CONDITION.
[2021-05-13 17:20] VITALS: BP 135/82
== END 2021-05-13 17:23 | disposition short-term general hospital (02) ==
LOC: ER 10:16
DX: F10.129 Alcohol abuse with intoxication, unspecified (principal); I62.9 Nontraumatic intracranial hemorrhage, unspecified; R10.84 Generalized abdominal pain; R11.2 Nausea with vomiting, unspecified; R19.7 Diarrhea, unspecified; I10 Essential (primary) hypertension; E11.9 Type 2 diabetes mellitus without complications; Z98.890 Other specified postprocedural states; Z72.89 Other problems related to lifestyle; Z59.0 Homelessness; Z79.4 Long term (current) use of insulin; Z79.899 Other long term (current) drug therapy; Y90.0 Blood alcohol level of less than 20 mg/100 ml
CPT/HCPCS: 36415; 70450; 74176; 80053; 80320; 82272; 85025; 85610; 93005; 96365; 96375; 99291; 99292; J2405; J7030